=== PATIENT | male | born 1955 | race Caucasian/White ===

== ENCOUNTER 2022-06-15 15:12 | Outpatient (CLI) | payer MEDICARE, SELFPAY ==
--- NOTE | 2022-06-15 15:33 | ECG_ITS ---
Measurements Intervals [place] Rate: 75 P: [place]: 0 QRS: -2 QRSD: 129 T: 7 QT: 404 QTc: 452 Interpretive Statements ATRIAL FIBRILLATION RIGHT BUNDLE BRANCH BLOCK ABNORMAL ECG NO PREVIOUS ECG AVAILABLE FOR COMPARISON Electronically Signed On 06-15-2022 16:13:37 GENERAL MERCHANDISE SALESPERSON by Sathish England D.O.
[2022-06-15 16:02] LABS: Appearance Urine Clear (Clear); Bilirubin Urine Negative (Negative); Blood Urine Negative (Negative); Color Urine Yellow (Yellow); Glucose Urine UA Negative (Negative); Ketones Urine Negative (Negative); Leukocyte Esterase Ur Negative LEU/UL (NEGATIVE); Nitrate Urine Negative (Negative); Protein Urine Negative (Negative); Specific Grav Ur 1.015 (1.001-1.035); Urobilinogen Urine 0.2 mg/dL (<2.0)
[2022-06-15 16:06] LABS: Add Urine Microscopic? NO
[2022-06-15 16:09] LABS: Alanine Aminotransferase 41 U/L (6-50); Albumin Level 4.4 g/dL (3.5-5.1); Alkaline Phosphatase 65 U/L (38-126); Anion Gap 6 mmol/L (8-16); Aspartate Amino Transferase 36 U/L (17-59); Bilirubin,Total 0.9 mg/dL (0.2-1.3); Blood Urea Nitrogen 18 mg/dL (9-20); Calcium 8.7 mg/dL (8.4-10.2); Carbon Dioxide 28 mmol/L (22-30); Chloride 102 mmol/L (98-107); Cholesterol 162 mg/dL (0-200); Estimated Glomerular Filt Rate > 60; Glucose 96 mg/dL (65-110); HDL Direct 45 mg/dL; Potassium 4.5 mmol/L (3.4-5.0); Sodium 136 mmol/L (137-145); Triglycerides 60 mg/dL (<150)
[2022-06-15 16:30] LABS: LDL Cholesterol Direct 80 mg/dL
[2022-06-15 16:50] LABS: Prostate Specific Antigen 1.4 ng/mL (< OR = 4.0)
[2022-06-15 17:25] LABS: Folic Acid 14.1 ng/mL (2.76->20)
== END 2022-06-15 15:13 | disposition home or self-care (01) ==
LOC: ANHLAB 15:16
PROVIDERS: PCP Nurse Practitioner Family; Visit Provider Nurse Practitioner Family
DX: R35.1 Nocturia (principal); I10 Essential (primary) hypertension; I49.9 Cardiac arrhythmia, unspecified; I45.10 Unspecified right bundle-branch block
CPT/HCPCS: 36415; 80048; 80061; 80076; 81003; 82607; 82746; 84153; 84443; 93005

== ENCOUNTER 2022-08-22 01:13 | Day surgery (SDC) | payer MEDICARE, SELFPAY ==
[2022-08-19 13:30] VITALS: BMI 32.5
[2022-08-22] VITALS (9 sets, daily range): BP systolic 132–177; BP diastolic 80–127; PULSE 56–88; RESP 14–18; TEMP 36.6; O2SAT 95–99; BMI 32.7
--- NOTE | 2022-08-22 08:00 | ECG_ITS ---
Measurements Intervals [place] Rate: 69 P: [place]: 0 QRS: -3 QRSD: 150 T: -5 QT: 436 QTc: 467 Interpretive Statements ATRIAL FIBRILLATION RIGHT BUNDLE BRANCH BLOCK ABNORMAL ECG COMPARED TO ECG 06/15/2022 16:07:55 NO SIGNIFICANT CHANGES Electronically Signed On 08-22-2022 16:16:31 COAL WASHER by Russ Howell M.D.
--- NOTE | 2022-08-22 09:00 | ECG_ITS ---
Measurements Intervals [place] Rate: 57 P: 61 [place]: 272 QRS: -5 QRSD: 133 T: 1 QT: 462 QTc: 451 Interpretive Statements SINUS BRADYCARDIA WITH FIRST DEGREE AV BLOCK RIGHT BUNDLE BRANCH BLOCK ABNORMAL ECG COMPARED TO ECG 08/22/2022 08:55:01 SINUS BRADYCARDIA HAS REPLACED ATRIAL FIBRILLATION Electronically Signed On 08-22-2022 16:20:40 MANAGER INTERFACE by Russ Howell M.D.
[2022-08-22 09:30] LABS: Anion Gap 7 mmol/L (8-16); Blood Urea Nitrogen 18 mg/dL (9-20); Calcium 8.7 mg/dL (8.4-10.2); Carbon Dioxide 30 mmol/L (22-30); Chloride 102 mmol/L (98-107); Estimated CRCL calculation 75 ml/min; Estimated Glomerular Filt Rate > 60; Glucose 110 mg/dL (65-110); Potassium 4.4 mmol/L (3.4-5.0); Sodium 139 mmol/L (137-145)
--- NOTE | 2022-08-22 10:54 | WPDMODSED ---
Moderate Sedation Note-Pt Data Patient Data Diagnosis: Atrial fibrillation/persistent of unknown duration Present Complaint: No complaints Procedure to be performed/Plan: DC cardioversion Allergies Allergy/AdvReac Type Severity Reaction Status Date / Time Sulfa (Sulfonamide Allergy Rash Verified 08/22/22 09:03 Antibiotics) meperidine [From Demerol] AdvReac Unknown Hallucinati Verified 08/22/22 09:03 ng Home Medications Medication Instructions Recorded Confirmed Type ascorbic acid (vitamin C) 500 mg 500 mg PO DAILY 06/15/22 08/19/22 History tablet cholecalciferol (vitamin D3) 25 25 mcg PO DAILY 06/15/22 08/19/22 History mcg (1,000 unit) capsule docusate sodium 100 mg capsule 100 mg PO BID 06/15/22 08/22/22 History magnesium oxide 500 mg capsule 500 mg PO DAILY 06/15/22 08/19/22 History zinc sulfate 50 mg zinc (220 mg) 50 mg PO DAILY 06/15/22 08/19/22 History capsule (Orazinc) apixaban 5 mg tablet (Eliquis) 5 mg PO BID afib #60 tabs 06/16/22 08/22/22 Rx Probiotic 1 tablet PO DAILY 08/19/22 08/19/22 History milk thistle 500 mg capsule 1,000 mg PO DAILY 08/19/22 08/19/22 History sotalol 80 mg tablet 80 mg PO BID 08/19/22 08/22/22 History vitamin B complex (B 1 tablet PO DAILY 08/19/22 08/19/22 History Complex-Vitamin B12 tablet) Current Medications: Active Medications Sodium Chloride (Normal Saline Iv) 1,000 mls @ 30 mls/hr IV CONT .Q24H LAWANDA Sedation/Anesthesia: No previous sedation/anesthesia problems (including family history). [facility] Past Medical History Medical History (Updated 06/16/22 @ 12:43 by Nola Marvin NP) Atrial fibrillation BMI 32.0-32.9,adult Colon cancer screening Encounter to establish care HTN (hypertension) Hx of colonic polyp Hypersomnia Irregular heart rate Nocturia Snoring Surgical History Surgical History (Updated 06/15/22 @ 11:12 by SMITHA Tolbert) History of kidney surgery Family History Family History (Updated 06/15/22 @ 11:17 by SMITHA Tolbert) Sibling Alcohol abuse Mother Asthma Hypertension Grandparent Cancer Cerebrovascular accident Social History Social History (Updated 06/15/22 @ 14:32 by SMITHA Tolbert) Smoking packs per day: 1 Smoking cigarettes per day: 20.0 Years smoked: 10 Smoking pack-years: 10.00 Smoking status: Former smoker Tobacco type: cigarettes Smokeless tobacco user: chewing tobacco Additional smoking assessment comments: quit in 84 Alcohol intake: current Alcohol use details: Two per month Substance use: never Substance use type: does not use Lack of Transportation: No Lack of Food: Never True Current Housing: I Have Housing Concerned About Future Housing: No Difficulty Paying Gas/Electric Bills: No Difficulty Paying for Meds: No Currently Unemployed: No Education: High School Diploma/GED Difficulty w/ Childcare or Family Care: No Living arrangements: alone Spiritual care concerns: No Mod Sed Physical Exam Physical Exam Pre Procedural Exam: Normal: Neck, Throat, Airway, Lungs, Heart Size, Heart Rate, Neuro Exam and Extremities and Variation: Appearance (Overweight white male no distress) and Heart Rhythm (Irregularly irregular) Hours since solid foods: 12 Hours since liquid intake: 12 Mallampati Classification: class II Internal Medicine - PN: Obj Da Vital Signs Vital Signs: Vital Signs - 24 hr 08/22/22 09:00 08/22/22 10:50 Temperature 36.6 C Pulse Rate 80 88 Respiratory Rate 18 16 Blood Pressure 172/104 H 167/112 H Pulse Oximetry 98 99 Oxygen Delivery Room Air Room Air Meds/Results Medications: Active Medications Generic Name Dose Route Start Last Admin Trade Name Freq PRN Reason Stop Dose Admin Sodium Chloride 1,000 mls @ 30 mls/hr 08/22/22 08:00 Normal Saline Iv IV CONT .Q24H LAWANDA Labs 08/22/22 08:59 Labs: Laboratory Results - last 24 hr 08/22/22 08:59 Sodium 13
--- NOTE | 2022-08-22 11:01 | P.PCNCC_ITS ---
Cardiac Cath Procedure Note Date of procedure:: 08/22/22 Performing physician:: Marvel Jeong MD Indication:: Atrial fibrillation Brief clinical history:: This is a 66-year-old patient with atrial fibrillation unknown chronicity. An attempt at restoring sinus rhythm has been recommended for today. He is anticoagulated with apixaban and receiving antiarrhythmic therapy with sotalol. Procedure Procedure performed:: DC cardioversion Sedation/Medication given:: Propofol 50 mg IV push Estimated blood loss:: No blood loss Procedure note:: Patient was brought to the cardiac catheterization lab holding area where he was in the postabsorptive state defibrillator patches were placed in the AP position. He was then sedated with with propofol 50 mg IV push which provided very good sedation. He was then counter shocked using 200 joules in synchronized fashion x1 shock restoring normal sinus rhythm. Findings:: As above Conclusion:: Successful uncomplicated DC cardioversion terminating atrial fib/restoring sinus rhythm using 200 joules x1 shock. Marvel Jeong MD [facility]
== END 2022-08-22 12:30 | disposition home or self-care (01) ==
PROVIDERS: PCP Nurse Practitioner Family; Visit Provider Specialist
PROC: 5A2204Z Restoration of Cardiac Rhythm, Single (ICD-10-PCS; principal; 2022-08-22 10:00)
DX: I48.91 Unspecified atrial fibrillation (principal); I10 Essential (primary) hypertension; Z79.01 Long term (current) use of anticoagulants; Z87.891 Personal history of nicotine dependence
CPT/HCPCS: 36415; 80048; 83735; 92960; J2704; J7030

== ENCOUNTER 2022-08-25 10:44 | Observation (INO) | payer MEDICARE, SELFPAY ==
[2022-08-25] VITALS (20 sets, daily range): BP systolic 112–149; BP diastolic 74–116; PULSE 74–135; RESP 18–26; TEMP 36.5–37.7; O2SAT 92–95; BMI 31.9
--- NOTE | ~2022-08-25 | XR_ITS ---
Portable chest x-ray Comparison: None Clinical History: Cough, fever Findings: Lungs are clear, without focal consolidation or pleural effusion. Cardiomediastinal silho uette is unremarkable. Bones and soft tissues are unremarkable. Impression: Clear lungs. Reviewed, dictated and finalized at location . ROL ANALYST Impression: Clear lungs.
--- NOTE | ~2022-08-25 | CT_ITS ---
EXAMINATION:CT diagnostic chest wo con DATE: 08/25/2022 14:06 INDICATION: Chest pain. Fever. TECHNIQUE: Computed tomography (CT) of the chest was performed without intravenous contrast. Automate d exposure control and iterative reconstruction technique were employed. The dose-length product (DLP ) was 623.80 mGy-cm. COMPARISON: None. FINDINGS: There are two 3 mm nodules in right upper lobe, likely benign. There are patchy airspace an d groundglass opacities in basilar right lower lobe, consistent with pneumonia. There is mild atelect asis in lingula. No pleural effusion. There is left atrial enlargement of the heart. There are de la torre ry artery calcifications. No pericardial effusion. There is mild bilateral gynecomastia. There is mil d left hydronephrosis. There is cortical thinning of left kidney. There is moderate lower thoracic sp ondylosis. There is a hemangioma in T3 vertebral body. There is a 10 mm sclerotic lesion in T8 verteb ral body. There are old healed left rib fractures. IMPRESSION: 1. Right lower lobe pneumonia. 2. Mild left hydronephrosis. Consider CT urogram (CT abdomen and pelvis without and with contrast). 3. Sclerotic lesion in T3 vertebral body. The absence of known malignancy, this finding is likely a h emangioma or benign bone island. Reviewed, dictated and finalized at location A. [facility] IMPRESSION: 1. Right lower lobe pneumonia. 2. Mild left hydronephrosis. Consider CT urogram (CT abdomen and pelvis without and with contrast). 3. Sclerotic lesion in T3 vertebral body. The absence of known malignancy, this finding is likely a hemangioma or benign bone island.
--- NOTE | 2022-08-25 11:25 | ECG_ITS ---
Measurements Intervals [place] Rate: 84 P: [place]: 0 QRS: 17 QRSD: 133 T: 26 QT: 389 QTc: 461 Interpretive Statements ATRIAL FLUTTER/TACHYCARDIA RIGHT BUNDLE BRANCH BLOCK [120+ ms QRS DURATION, UPRIGHT V1, 40+ ms S IN I/aVL/V4/V5/V6] COMPARED TO ECG 08/22/2022 11:06:09 ATRIAL FLUTTER NOW PRESENT Electronically Signed On 08-25-2022 15:46:08 BRAID MAKER by Valerie Cagle M.D.
--- NOTE | 2022-08-25 12:20 | ED.GENADULT ---
HPI - General Adult General Chief complaint: Upper Respiratory Infection Stated complaint: COUGH, WARM TO TOUCH, TREMORS Time Seen by Provider: 08/25/22 12:04 Source: RN notes reviewed History of Present Illness HPI narrative: Patient presents emergency room from home for respiratory infection symptoms. Patient states symptoms began approximately 3 AM this morning. States he has had a cough has been productive of mucus as well as rhinorrhea. States that he also had a temperature up to 101.5 states he last took a gram of Tylenol at 10 AM this morning. He states that he did just recently have a cardioversion by Dr. Jeong approximately 4 days ago that was initially successful but he states over the past 2 days he is felt like he is gone back into A-fib states that he is on sotalol and Eliquis which she has been taking. He denies having any chest pain or shortness of breath he denies any abdominal pain nausea or vomiting Related Data Home Medications Medication Instructions Recorded Confirmed ascorbic acid (vitamin C) 500 mg 500 mg PO DAILY 06/15/22 08/19/22 tablet cholecalciferol (vitamin D3) 25 25 mcg PO DAILY 06/15/22 08/19/22 mcg (1,000 unit) capsule docusate sodium 100 mg capsule 100 mg PO BID 06/15/22 08/22/22 magnesium oxide 500 mg capsule 500 mg PO DAILY 06/15/22 08/19/22 zinc sulfate 50 mg zinc (220 mg) 50 mg PO DAILY 06/15/22 08/19/22 capsule (Orazinc) Probiotic 1 tablet PO DAILY 08/19/22 08/19/22 milk thistle 500 mg capsule 1,000 mg PO DAILY 08/19/22 08/19/22 sotalol 80 mg tablet 80 mg PO BID 08/19/22 08/22/22 vitamin B complex (B 1 tablet PO DAILY 08/19/22 08/19/22 Complex-Vitamin B12 tablet) Allergies Allergy/AdvReac Type Severity Reaction Status Date / Time Sulfa (Sulfonamide Allergy Rash Verified 08/25/22 13:22 Antibiotics) meperidine [From Demerol] AdvReac Unknown Hallucinati Verified 08/25/22 13:22 ng Review of Systems Review of Systems: Gen.: Reports fever Eyes: Denies eye pain or visual change ENT: Reports rhinorrhea Respiratory: Reports cough denies shortness of breath CV: Denies chest pain reports atrial fibrillation GI: Denies abdominal pain nausea, emesis or diarrhea Musculoskeletal: Denies back pain or muscle pain Neuro: Denies numbness, tingling, weakness or focal weakness Skin: Denies rash Except as documented, all other systems reviewed and negative [facility] Past Medical History Medical History Atrial fibrillation BMI 32.0-32.9,adult Colon cancer screening Encounter to establish care HTN (hypertension) Hx of colonic polyp Hypersomnia Irregular heart rate Nocturia Snoring Surgical History Surgical History (Updated 06/15/22 @ 11:12 by SMITHA Tolbert) History of kidney surgery Family History Family History (Updated 06/15/22 @ 11:17 by SMITHA Tolbert) Sibling Alcohol abuse Mother Asthma Hypertension Grandparent Cancer Cerebrovascular accident Social History Social History Smoking packs per day: 1 Smoking cigarettes per day: 20.0 Years smoked: 10 Smoking pack-years: 10.00 Smoking status: Former smoker Tobacco type: cigarettes Smokeless tobacco user: chewing tobacco Additional smoking assessment comments: quit in 84 Alcohol intake: current Alcohol use details: once a month Substance use: former Substance use type: marijuana Lack of Transportation: No Lack of Food: Never True Current Housing: I Have Housing Concerned About Future Housing: No Difficulty Paying Gas/Electric Bills: No Difficulty Paying for Meds: No Currently Unemployed: No Education: High School Diploma/GED Difficulty w/ Childcare or Family Care: No Living arrangements: alone Spiritual care concerns: No Exam Narrative: APPEARANCE: No acute distress, nontoxic, resting in bed EYES: EOMI HEENT: Normocepha
[2022-08-25 12:26] LABS: Influenza A QL RT-PCR Negative (Negative); Influenza B QL RT-PCR Negative (Negative); SARS-CoV-2 RNA PCR Negative
[2022-08-25] MEDS: SODIUM CHLORIDE 0.9% IV 1,000 ML 999 ML IV CONT (12:30)
[2022-08-25 13:04] LABS: Basophils Absolute Auto 0.1 K/mm3 (0.0-0.1); Basophils Percent Auto 0.3 % (0.2-1.2); Eosinophils Percent Auto 0.2 % (0-4.4); Hematocrit 43.9 % (42.0-52.0); Hemoglobin 14.8 g/dL (14.0-18.0); Immature Granulocyte Absolute 0.07 K/mm3 (0.00-0.031); Immature Granulocyte Percent A 0.4 % (0-0.5); Lymphocytes Percent Auto 7.4 % (18.3-44.2); Mean Corpuscular HGB Conc 33.7 g/dl (32-36); Mean Corpuscular Volume 94.8 fl (80-100); Mean Platelet Volume 9.8 fl (7.4-10.4); Monocytes Absolute Auto 1.5 K/mm3 (0.1-0.6); Monocytes Percent Auto 8.5 % (2.6-8.5); Neutrophils Absolute Auto 14.7 K/mm3 (1.3-6.7); Neutrophils Percent Auto 83.2 % (45.5-73.1); Platelet Count Result 213 k/mm3 (150-375); Red Blood Count 4.63 M/mm3 (4.6-6.20); Red Cell Distribution Width 13.1 % (11.5-14.5); White Blood Count 17.7 K/mm3 (4.5-10.0)
[2022-08-25 13:14] LABS: Alanine Aminotransferase 32 U/L (6-50); Albumin Level 4.2 g/dL (3.5-5.1); Alkaline Phosphatase 65 U/L (38-126); Anion Gap 6 mmol/L (8-16); Aspartate Amino Transferase 29 U/L (17-59); Bilirubin,Total 0.9 mg/dL (0.2-1.3); Blood Urea Nitrogen 16 mg/dL (9-20); Calcium 8.2 mg/dL (8.4-10.2); Carbon Dioxide 27 mmol/L (22-30); Chloride 100 mmol/L (98-107); Estimated CRCL calculation 74 ml/min; Estimated Glomerular Filt Rate > 60; Glucose 113 mg/dL (65-110); Lactic Acid Reflex 0.8 mmol/L (0.7-2.0); Potassium 4.2 mmol/L (3.4-5.0); Sodium 133 mmol/L (137-145)
[2022-08-25 13:17] LABS: INR 1.2; Prothrombin Time 15.1 Seconds (11.1-14.7)
[2022-08-25 13:18] LABS: Partial Thromboplastin Time 31.7 SECONDS (22.3-36.8)
[2022-08-25 13:25] LABS: NT Pro B Type Natriuretic Pept 1390 pg/mL (19.9-100); Troponin I < 0.012 ng/mL (0.000-0.034)
--- NOTE | 2022-08-25 18:38 | PC.NURSE ---
This patient, David Stewart III, was admitted to Medical Room 345-01. Patient/family oriented to hospital policies and general routines including ID bracelet, bed and alarms, visiting hours, pain management, procedures, bathroom and other care routines, personal items, smoking policy, room service/diet, and visiting hours. Information on how to activate the Rapid Response Team has been discussed. Patient/Family are encouraged to report perceived risks to care and to ask questions if they do not understand what they are told or what they should do.
--- NOTE | 2022-08-25 20:45 | PM.IMHP ---
H&P: HPI History of Present Illness Date/Time: 08/25/22 20:45 Chief Complaint: Chills Narrative: This is a 66-year-old male with past medical history significant for atrial fibrillation, rate control and anticoagulated, patient presented to the emergency room due to 3 days of flu-like symptoms, body aches and pains, nasal congestion, cough, fevers, chills, poor appetite, generalized malaise. In emergency room patient is preliminary workup was significant for CBC with a white count of 17,000, patient tested negative for influenza type A influenza type B and COVID-19. A CT of the chest was reported as: FINDINGS: There are two 3 mm nodules in right upper lobe, likely benign. There are patchy airspace and groundglass opacities in basilar right lower lobe, consistent with pneumonia. There is mild atelectasis in lingula. No pleural effusion. There is left atrial enlargement of the heart. There are coronary artery calcifications. No pericardial effusion. There is mild bilateral gynecomastia. There is mild left hydronephrosis. There is cortical thinning of left kidney. There is moderate lower thoracic spondylosis. There is a hemangioma in T3 vertebral body. There is a 10 mm sclerotic lesion in T8 vertebral body. There are old healed left rib fractures. IMPRESSION: 1. Right lower lobe pneumonia. 2. Mild left hydronephrosis. Consider CT urogram (CT abdomen and pelvis without and with contrast). 3. Sclerotic lesion in T3 vertebral body. The absence of known malignancy, this finding is likely a hemangioma or benign bone island. Review of Systems Review of Systems: Flu-like symptoms, chills, cough, body aches and pains, generalized malaise, poor appetite Constitutional: Constitutional: Reports body ache(s), Reports chills, Reports fatigue, Reports fever(s), Reports lethargy, Reports malaise, Reports night sweats, Reports poor appetite and Reports weakness Eyes: Eyes: Denies change in vision ENT: Denies dysphagia, Denies vertigo, Denies dizziness and Denies odynophagia Cardiovascular: Cardiovascular: Denies chest pain, Denies leg edema, Denies lightheadedness and Denies palpitations Respiratory: Respiratory: Reports chest congestion, Reports cough, Reports excessive phlegm production, Denies pain on inspiration and Reports dyspnea Gastrointestinal: Gastrointestinal: Denies abdominal pain, Denies dyspepsia, Denies heartburn, Denies diarrhea, Denies nausea and Denies vomiting Genitourinary: Genitourinary: Denies dysuria Musculoskeletal: Musculoskeletal: Reports muscle weakness Integumentary/Breasts: Skin/Breast: Denies rash Neurologic: Denies focal weakness and Denies Sensory deficit (Neuro) Psychiatric: Psychiatric: Reports no additional psychiatric complaints and Reports as per HPI Endocrine: Endocrine: Denies cold intolerance, Denies flushing, Denies heat intolerance, Denies polyphagia, Denies polydipsia and Denies palpitations Hematologic/Lymphatic: Hematologic/Lymphatic: Reports no additional hematologic/lymphatic complaints and Reports as per HPI Allergic/Immunologic: Allergic/Immunologic: Reports no additional allergic/immunologic complaints and Reports as per HPI PMFSH Past Medical History Medical History Atrial fibrillation BMI 32.0-32.9,adult Colon cancer screening Encounter to establish care HTN (hypertension) Hx of colonic polyp Hypersomnia Irregular heart rate Nocturia Snoring Surgical History Surgical History (Updated 06/15/22 @ 11:12 by SMITHA Tolbert) History of kidney surgery Family History Family History (Updated 06/15/22 @ 11:17 by SMITHA Tolbert) Sibling Alcohol abuse Mother Asthma Hypertension Grandparent Cancer Cerebrovascular accident Social History Social History Smoking packs per day: 1 Smoking cigarettes per day: 20.0 Years smoked: 10 Smoking pack-years: 10.0
[2022-08-25] MEDS: APIXABAN 5 MG TABLET PO (21:44)
[2022-08-25] MEDS: SOTALOL HCL 80 MG TABLET PO (21:44)
[2022-08-26] VITALS (11 sets, daily range): BP systolic 113–137; BP diastolic 62–85; PULSE 66–104; RESP 18–20; TEMP 35.6–36.6; O2SAT 96–97
[2022-08-26 05:38] LABS: Basophils Absolute Auto 0.1 K/mm3 (0.0-0.1); Basophils Percent Auto 0.4 % (0.2-1.2); Eosinophils Absolute Auto 0.1 K/mm3 (0-0.3); Hematocrit 39.4 % (42.0-52.0); Hemoglobin 13.4 g/dL (14.0-18.0); Immature Granulocyte Absolute 0.04 K/mm3 (0.00-0.031); Immature Granulocyte Percent A 0.3 % (0-0.5); Lymphocytes Absolute Auto 2.59 K/mm3 (0.9-3.2); Lymphocytes Percent Auto 19.5 % (18.3-44.2); Mean Corpuscular Hemoglobin 31.9 pg (26-34); Mean Corpuscular Volume 93.8 fl (80-100); Mean Platelet Volume 10.3 fl (7.4-10.4); Monocytes Absolute Auto 1.3 K/mm3 (0.1-0.6); Neutrophils Absolute Auto 9.1 K/mm3 (1.3-6.7); Neutrophils Percent Auto 68.8 % (45.5-73.1); Platelet Count Result 204 k/mm3 (150-375); White Blood Count 13.3 K/mm3 (4.5-10.0)
[2022-08-26 05:43] LABS: Alanine Aminotransferase 27 U/L (6-50); Albumin Level 3.8 g/dL (3.5-5.1); Alkaline Phosphatase 55 U/L (38-126); Anion Gap 5 mmol/L (8-16); Aspartate Amino Transferase 27 U/L (17-59); Bilirubin,Total 1.1 mg/dL (0.2-1.3); Blood Urea Nitrogen 16 mg/dL (9-20); Calcium 7.8 mg/dL (8.4-10.2); Carbon Dioxide 28 mmol/L (22-30); Chloride 103 mmol/L (98-107); Estimated CRCL calculation 74 ml/min; Estimated Glomerular Filt Rate > 60; Glucose 114 mg/dL (65-110); Sodium 136 mmol/L (137-145)
[2022-08-26] MEDS: SOTALOL HCL 80 MG TABLET PO ×2 (08:29→17:32)
[2022-08-26] MEDS: APIXABAN 5 MG TABLET PO ×2 (08:29→17:32)
[2022-08-26] MEDS: VITAMIN B COMPLEX CAPSULE 1 CAP PO (08:30)
[2022-08-26] MEDS: ZINC SULFATE 220 MG CAPSULE 50 MG PO (08:30)
[2022-08-26] MEDS: DOCUSATE SODIUM 100 MG CAPSULE PO ×2 (08:33→17:31)
--- NOTE | 2022-08-26 10:06 | PM.CNCAR ---
Assessment and Plan Assessment and plan (1) Atrial flutter: Code(s): I48.92 - Unspecified atrial flutter Status: Acute Plan This is a 66-year-old man with history of atrial flutter he was seen in the outpatient setting and cardioverted to sinus rhythm 4 days ago. In the setting of this febrile illness he is back in atrial flutter and again is tolerating his arrhythmia without any significant decompensation. Options of excepting chronic atrial flutter versus attempting rhythm again have been discussed with him. My preference would be to consider consulting echo technician at this time since his recurrence occurred within just several days of cardioversion. I seems highly unlikely that repeated cardioversion will be successful in restoring and maintaining sinus rhythm. Patient would like to consider this option as he recovers from his pneumonia. I will see him in the office as an outpatient after discharge and discuss this further. Marvel Jeong MD [facility] History of Present Illness History of Present Illness Consult date/time: 08/26/22 10:06 Reason For Visit: sepsis,community acquired pneumonia,atrial fibrill Narrative: This is a 66-year-old man who has a history of atrial flutter I am seeing him today at the request of the hospitalist because of recurrence of his arrhythmia. The patient was referred to see me by his PCP as an outpatient because of the development of atrial fibrillation. When he was seen in the office his electrocardiogram demonstrated atrial flutter with controlled ventricular response. He was not greatly symptomatic with this at most was complaining of symptoms of fatigue and exertional intolerance. He was specifically where his arrhythmia. An echocardiogram was done as an outpatient demonstrating preserved left ventricular systolic function, no significant valvular pathology any did have sick significant at least moderate biatrial dilation. As result of this an attempt was made to restore sinus rhythm electrically. He was started on sotalol and brought in to the hospital for DC cardioversion 4 days ago. He was sedated with propofol and got counter shocked with 200 joules restoring sinus rhythm. He then came back to the emergency room yesterday primarily because of a cough and a fever. For a couple of days he has been having symptoms of a initially nonproductive and then a productive cough with a temperature of up to 101.5? at home. He was seen in the emergency room and found to have pneumonia and admitted to the hospital for he was started on antibiotics. It appears that he has defervesce 10 feels well at this time this morning. It is not clear to me a according to those in the chart if he is planning to be discharged today or not. His dosage of sotalol was increased to 120 mg q.12 hours he is currently maintaining atrial flutter with a heart rate of about 67 and is otherwise free of any complaints. He remains systemically anticoagulated with apixaban. Review of Systems Constitutional: Constitutional: Reports no additional constitutional complaints Eyes: Eyes: Reports no additional eye complaints ENT: Reports system reviewed and no additional complaints, except as documented Cardiovascular: Cardiovascular: Reports no additional cardiovascular complaints Respiratory: Respiratory: Reports as per HPI and Reports cough Gastrointestinal: Gastrointestinal: Reports no additional gastrointestinal complaints Musculoskeletal: Musculoskeletal: Reports no additional musculoskeletal complaints Integumentary/Breasts: Skin/Breast: Reports system reviewed and no additional complaints, except as docu Neurologic: Reports system reviewed and no additional complaints, except as documented Endocrine: Endocrine: Reports no additional endocrine complaints Hematologic/Lymphatic: Hematologic/Lymphatic: Reports no additional hematologic/lymphatic complaints Allergic/Immunologic: Allergic/Immunologic: Report
--- NOTE | 2022-08-26 12:01 | PM.IMPN ---
Progress Note: A&P Assessment and Plan (1) Community acquired pneumonia: Code(s): J18.9 - Pneumonia, unspecified organism Status: Acute Assessment and Plan: Admit to regular medical floor Started on Rocephin and Zithromax Cultures in progress Supportive care (2) Atrial fibrillation: Code(s): I48.91 - Unspecified atrial fibrillation Status: Acute Assessment and Plan: Continue apixaban Continue sotalol (3) HTN (hypertension): Code(s): I10 - Essential (primary) hypertension Status: Acute Assessment and Plan: Well controlled Subjective Date/time seen: 08/26/22 12:01 No new complaints Exam Narrative: Patient is laying in bed Const: General: comfortable, no acute distress, well developed, alert, awake, ill appearing acutely, average body habitus and overweight Nutritional Appearance: average body habitus and overweight Orientation/consciousness: patient oriented x3 HENMT: Head: normal to inspection, normocephalic and atraumatic Ears: hearing grossly normal bilaterally Face/Nose/Sinus: normal facial exam Face and sinus: normal facial exam Eyes: General: appearance normal, both eyes and all related structures Pupils: Equal, round and reactive pupils present EOM: EOMs intact bilaterally Neck: Neck: full ROM, no lymphadenopathy and no JVD Thyroid: thyroid normal Lymphatic: no lymphadenopathy noted Resp: Effort & Inspection: normal respiratory effort and able to speak in complete sentences Auscultation: clear to auscultation bilaterally Cardio: Jugular venous distension: no JVD Rate: regular rate Rhythm: regular rhythm Heart sounds: S1 normal heart sound present and S2 normal heart sound present GI: Inspection: Pannus present and obesity : General: Yes deferred Skin: Rashes: no rashes Wounds: no wounds Neuro: General: patient oriented x3 and CN's II-XI intact bilaterally Cranial nerves: Yes CN's II-XII intact bilaterally and Yes Equal, round and reactive pupils present Cognition (Neuro): normal cognition Speech: normal speech Gait exam (Neuro): Normal gait present Motor exam (neuro): 5/5 motor strength present throughout Sensory Exam: No Sensory deficit (Neuro) Extrem: General: normal to inspection, full ROM, no joint enlargement and no pedal edema Objective Data Vital Signs Vital Signs: Vital Signs - 24 hr 08/25/22 12:16 08/25/22 12:31 08/25/22 13:00 Temperature Pulse Rate 114 H 105 H 112 H Respiratory Rate 23 H 26 H 21 H Blood Pressure 130/90 112/74 149/88 H Pulse Oximetry 94 94 93 Oxygen Delivery 08/25/22 13:31 08/25/22 13:45 08/25/22 15:00 Temperature 97.8 F Pulse Rate 105 H 74 Respiratory Rate 21 H 21 H Blood Pressure 140/99 H 126/90 Pulse Oximetry 94 94 Oxygen Delivery 08/25/22 15:30 08/25/22 16:01 08/25/22 16:45 Temperature Pulse Rate 91 95 80 Respiratory Rate 21 H 24 H 20 Blood Pressure 140/99 H 146/90 H 140/90 Pulse Oximetry 94 94 95 Oxygen Delivery 08/25/22 20:08 08/25/22 21:44 08/25/22 20:00 Temperature 97.7 F Pulse Rate 80 96 Respiratory Rate 18 Blood Pressure 136/78 Pulse Oximetry 94 Oxygen Delivery Room Air 08/26/22 06:00 08/25/22 20:00 08/26/22 00:00 Temperature 97.9 F Pulse Rate 68 89 87 Respiratory Rate 18 Blood Pressure 137/75 Pulse Oximetry 97 Oxygen Delivery 08/26/22 04:00 08/26/22 08:29 08/26/22 08:00 Temperature Pulse Rate 67 84 74 Respiratory Rate Blood Pressure Pulse Oximetry Oxygen Delivery Intake/Output Intake/Output: Intake & Output 08/23/22 08/24/22 08/25/22 08/26/22 23:59 23:59 23:59 23:59 Intake Total 1540 640 Balance 1540 640 Meds/Results Medications: Active Medications Generic Name Dose Route Start Last Admin Trade Name Freq PRN Reason Stop Dose Admin Apixaban 5 mg 08/25/22 21:00 08/26/22 08:29 Apixaban 5 Mg Tablet PO 5 mg BID LAWANDA Administration Ascorbic Acid 500
[2022-08-26] MEDS: CHOLECALCIFEROL 1,000 UNITS TABLET 1000 UNITS PO (20:07)
[2022-08-26] MEDS: MAGNESIUM OXIDE 400 MG TABLET PO (20:07)
[2022-08-26] MEDS: ASCORBIC ACID 500 MG TABLET PO (20:07)
[2022-08-27] VITALS: PULSE 88
[2022-08-27 04:00] VITALS: PULSE 65
[2022-08-27 04:47] VITALS: BP 128/73; PULSE 76; RESP 18; TEMP 36.6; O2SAT 97
[2022-08-27] MEDS: DOCUSATE SODIUM 100 MG CAPSULE PO (08:38)
[2022-08-27] MEDS: ZINC SULFATE 220 MG CAPSULE 50 MG PO (08:38)
[2022-08-27] MEDS: VITAMIN B COMPLEX CAPSULE 1 CAP PO (08:38)
[2022-08-27 08:39] VITALS: PULSE 68
[2022-08-27] MEDS: SOTALOL HCL 80 MG TABLET PO (08:39)
[2022-08-27] MEDS: LORATADINE 10 MG TABLET PO (08:40)
[2022-08-27] MEDS: APIXABAN 5 MG TABLET PO (08:40)
--- NOTE | 2022-08-27 12:25 | PM.DS ---
DS: Admitting Diagnosis Discharge Date 08/27/22 Admitting Diagnosis atrial flutter and pneumonia DS: Discharge Diagnosis Discharge Diagnosis (1) Community acquired pneumonia: Code(s): J18.9 - Pneumonia, unspecified organism Status: Acute Assessment and Plan: antibiotics (2) Atrial fibrillation: Code(s): I48.91 - Unspecified atrial fibrillation Status: Acute Assessment and Plan: Continue apixaban Continue sotalol (3) HTN (hypertension): Code(s): I10 - Essential (primary) hypertension Status: Acute Assessment and Plan: Well controlled DS: Summary Hospital Course Hospital Course: patient is a 66-year-old male coming into the hospital with pneumonia. He will be sent home on Omnicef for 5 more days. Otherwise he does have a history of atrial flutter which was treated with cardioversion however patient and couple days later went back into atrial flutter. Dr. Jeong was consulted and recommended evaluation as an outpatient for possible EP study. Follow-up cardiology. rates are otherwise controlled he is asymptomatic Time Spent with Patient Time attestation: Total time spent providing and/or coordinating discharge services: Exam Narrative: Patient is laying in bed Const: General: comfortable, no acute distress, well developed, alert, awake, ill appearing acutely, average body habitus and overweight Nutritional Appearance: average body habitus and overweight Orientation/consciousness: patient oriented x3 HENMT: Head: normal to inspection, normocephalic and atraumatic Ears: hearing grossly normal bilaterally Face/Nose/Sinus: normal facial exam Face and sinus: normal facial exam Eyes: General: appearance normal, both eyes and all related structures Pupils: Equal, round and reactive pupils present EOM: EOMs intact bilaterally Neck: Neck: full ROM, no lymphadenopathy and no JVD Thyroid: thyroid normal Lymphatic: no lymphadenopathy noted Resp: Effort & Inspection: normal respiratory effort and able to speak in complete sentences Auscultation: clear to auscultation bilaterally Cardio: Jugular venous distension: no JVD Rate: regular rate Rhythm: regular rhythm Heart sounds: S1 normal heart sound present and S2 normal heart sound present GI: Inspection: Pannus present and obesity : General: Yes deferred Skin: Rashes: no rashes Wounds: no wounds Neuro: General: patient oriented x3 and CN's II-XI intact bilaterally Cranial nerves: Yes CN's II-XII intact bilaterally and Yes Equal, round and reactive pupils present Cognition (Neuro): normal cognition Speech: normal speech Gait exam (Neuro): Normal gait present Motor exam (neuro): 5/5 motor strength present throughout Sensory Exam: No Sensory deficit (Neuro) Extrem: General: normal to inspection, full ROM, no joint enlargement and no pedal edema DS: Data Data Completed and Pending Labs on day of discharge: Preliminary micro results at discharge 08/25/22 14:42 Blood Culture - Preliminary Blood 08/25/22 14:43 Blood Culture - Preliminary Blood Discharge Plan Discharge Attending physician on discharge: Marvel Ramon Consulting providers: Marvel Jeong Discharging Clinician: Marvel Ramon Patient Disposition: Home, Self-Care Activity: as tolerated Diet: as tolerated Patient Instructions: Antibiotic Form Stand Alone Forms: General Discharge Information Follow-up/Referrals: Marvel Jeong MD [Physician] - Nola Marvin NP [Primary Care Provider] - Discharge Medications: New cefdinir 300 mg capsule 300 mg PO Q12H Qty: 10 0RF Continued ascorbic acid (vitamin C) 500 mg tablet 500 mg PO DAILY docusate sodium 100 mg capsule 100 mg PO BID cholecalciferol (vitamin D3) 25 mcg (1,000 unit) capsule 25 mcg PO DAILY magnesium oxide 500 mg capsule 400 mg PO DAILY zinc sulfate [Orazinc] 50 mg zinc (220 m
[2022-08-27 14:00] VITALS: BP 114/76; PULSE 70; RESP 20; TEMP 37; O2SAT 97
== END 2022-08-27 14:31 | disposition home or self-care (01) ==
LOC: ANHED 15:19 → ANH3MED 16:51
PROVIDERS: Physician Assistant; Admitting Provider Internal Medicine; Emergency Provider Emergency Medicine; PCP Nurse Practitioner Family; Visit Provider Chiropractor
DX: J18.9 Pneumonia, unspecified organism (principal); I48.91 Unspecified atrial fibrillation; I10 Essential (primary) hypertension; N13.30 Unspecified hydronephrosis; I48.92 Unspecified atrial flutter; I45.10 Unspecified right bundle-branch block; M47.814 Spondylosis without myelopathy or radiculopathy, thoracic region; F12.11 Cannabis abuse, in remission; F10.90 Alcohol use, unspecified, uncomplicated; D72.829 Elevated white blood cell count, unspecified; Z20.822 Contact with and (suspected) exposure to COVID-19; Z79.01 Long term (current) use of anticoagulants; Z87.891 Personal history of nicotine dependence; Z79.899 Other long term (current) drug therapy; Z82.49 Family history of ischemic heart disease and other diseases of the circulatory system
CPT/HCPCS: 36415; 71045; 71250; 80053; 83605; 83880; 84484; 85025; 85610; 85730; 87040; 87636; 93005; 96361; 96365; 96366; 96367; 99285; A9270; G0378; J0456; J0696; J7030

== ENCOUNTER 2022-08-31 08:27 | Outpatient (CLI) | payer MEDICARE, SELFPAY ==
--- NOTE | 2022-09-17 22:38 | WPDHOMESLEEP ---
Sleep Study - Home Unattended Date of Study: 08/31/22 Ordering Provider: Nola Marvin NP Interpreting Provider: Megan Arteaga, DO Home Sleep Study Type: Watch PAT Height: 1.75 m Weight: 99.79 kg Body Mass Index: 32.5 Neck Circumference (inches): 16.5 [place]: 7 Reason for Sleep Study Nocturia, daytime hypersomnia Sleep History The patient is a 66-year-old male with hypertension, atrial fibrillation, irritable bowel syndrome and history of tobacco use that had a sleep study ordered for evaluation of sleep apnea. The patient occasionally awakens from sleep short of breath. He denies awakening at night with heartburn, belching or cough. He constantly snores loudly enough that others complain. He constantly has trouble sleeping when he has a cold. He occasionally wakes up gasping for air throughout the night. He occasionally has breathing problems at night observed by himself or others. He denies sweating excessively at night. He denies having heart palpitations or irregular heartbeats during the night. He frequently falls asleep during the day but never while driving. He denies sleep paralysis and cataplexy. He frequently has trouble at school or work due to sleepiness. He frequently experiences vivid dreamlike scenes upon awakening or falling asleep. He rarely feels afraid of going to sleep. He rarely has nightmares. He frequently remembers his dreams. He frequently has thoughts racing through his mind. He occasionally feels sad, depressed and anxious. He occasionally has muscular tension. He frequently notices parts of his body jerk. He occasionally kicks during the night. He rarely experiences crawling and aching feelings in his legs. He occasionally has leg pain during the night. He constantly grinds his teeth during sleep and occasionally awakens with morning jaw pain. He is rarely bothered by pain during the day and occasionally awakened by pain during the night. He occasionally wakes up feeling stiff in the morning. He rarely wakes up with sore or achy muscles. He rarely wakes up with pain in the neck, spine or other joints. He goes to bed at 9:30 p.m. on weekdays and at 10:30 p.m. on weekends. He is usually able to fall asleep in under 5 minutes. He wakes up more than 4 times throughout the night. When he awakens, he will watch videos. He will stay asleep from 10:00 p.m. to 2:00 a.m. and remain awake until 4-5 a.m. and then fall back asleep until 7:00 a.m.. He typically gets 4-6 hours of sleep per night. He will stay in bed for 5 minutes after waking up in the morning. He currently lives alone. He does not consume any caffeinated beverages within 2 hours of bedtime. He does not engage in physical exercise before bedtime. He will watch television before falling asleep. He will take naps in the afternoon or the evening and they are refreshing. He drinks 3 cups of caffeinated beverage per day. He is a former smoker. He denies alcohol and recreational drug use. [facility] Past Medical History Medical History Atrial fibrillation BMI 32.0-32.9,adult Colon cancer screening Encounter to establish care Hemorrhoid HTN (hypertension) Hx of colonic polyp Hypersomnia Irregular heart rate Nocturia Snoring Surgical History Surgical History History of kidney surgery Family History Family History Sibling Alcohol abuse Mother Asthma Hypertension Grandparent Cancer Cerebrovascular accident Social History Social History Smoking packs per day: 1 Smoking cigarettes per day: 20.0 Years smoked: 10 Smoking pack-years: 10.00 Smoking status: Former smoker Tobacco type: cigarettes Smokeless tobacco user: chewing tobacco Additional smoking assessment comments: quit
[2022-09-17 22:40] VITALS: BMI 32.5
--- NOTE | 2023-01-10 10:49 | SLEEP ---
pt is having uppp then will f/u with a second test to retest ahi
== END 2022-09-01 10:24 | disposition home or self-care (01) ==
LOC: ANHCSM 08:29
PROVIDERS: PCP Nurse Practitioner Family; Visit Provider Nurse Practitioner Family
DX: G47.10 Hypersomnia, unspecified (principal); G47.33 Obstructive sleep apnea (adult) (pediatric)
CPT/HCPCS: 95800

== ENCOUNTER 2022-09-05 10:51 | Emergency (ER) | payer MEDICARE, SELFPAY ==
[2022-09-05 11:21] VITALS: BP 158/88; PULSE 68; RESP 16; TEMP 36.4; O2SAT 98
--- NOTE | 2022-09-05 15:13 | ED.GENADULT ---
HPI - General Adult General Chief complaint: Unspecified Stated complaint: rectal bleeding x2 days, on blood thinners Time Seen by Provider: 09/05/22 13:43 History of Present Illness HPI narrative: Patient this is a 66-year-old male who comes in with chief complaint of rectal bleed x3 days. States he first noticed this on Monday after he went to the bathroom felt he had bleeding in his underwear. There was bright red blood. States it seemed dilute. He states that he had 1 more episode at a later with blood in his underwear. Denies blood in the stools. Denies melena. Denies hematochezia, nausea, vomiting, fevers, chills. Bowel movements have been regular. He is concerned as he does take Eliquis regularly. Denies LOC or any lightheadedness or dizziness. Denies any pain. Related Data Home Medications Medication Instructions Recorded Confirmed ascorbic acid (vitamin C) 500 mg 500 mg PO DAILY 06/15/22 08/25/22 tablet cholecalciferol (vitamin D3) 25 25 mcg PO DAILY 06/15/22 08/25/22 mcg (1,000 unit) capsule docusate sodium 100 mg capsule 100 mg PO BID 06/15/22 08/25/22 magnesium oxide 500 mg capsule 400 mg PO DAILY 06/15/22 08/25/22 zinc sulfate 50 mg zinc (220 mg) 50 mg PO DAILY 06/15/22 08/25/22 capsule (Orazinc) milk thistle 500 mg capsule 1,000 mg PO DAILY 08/19/22 08/25/22 sotalol 80 mg tablet 80 mg PO BID 08/19/22 08/25/22 vitamin B complex (B 1 tablet PO DAILY 08/19/22 08/25/22 Complex-Vitamin B12 tablet) Allergies Allergy/AdvReac Type Severity Reaction Status Date / Time Sulfa (Sulfonamide Allergy Rash Verified 09/05/22 11:30 Antibiotics) meperidine [From Demerol] AdvReac Unknown Hallucinati Verified 09/05/22 11:30 ng Review of Systems Review of Systems: CONSTITUTIONAL: Denies fever, chills, or sweats. EYES: Denies visual changes, redness, or discharge. ENT: Denies rhinorrhea, congestion, sore throat, or otalgia. CARDIOVASCULAR: Denies chest pain, palpitations, or edema. RESPIRATORY: Denies cough or dyspnea. GASTROINTESTINAL: Endorses rectal bleed. Denies rectal pain. Denies abdominal pain, nausea, vomiting, or diarrhea. GENITOURINARY: Denies dysuria or hematuria. SKIN: Denies rash or itching. MUSCULOSKELETAL: Denies back pain, joint pain, or myalgia. NEUROLOGIC: Denies headache, numbness, dizziness, or weakness. PSYCHIATRIC: Denies anxiety or depression. [facility] Past Medical History Medical History (Updated 09/05/22 @ 15:54 by Ruiz Vallejo PA-C) Atrial fibrillation BMI 32.0-32.9,adult Colon cancer screening Encounter to establish care Hemorrhoid HTN (hypertension) Hx of colonic polyp Hypersomnia Irregular heart rate Nocturia Snoring Surgical History Surgical History (Updated 06/15/22 @ 11:12 by SMITHA Tolbert) History of kidney surgery Family History Family History (Updated 06/15/22 @ 11:17 by SMITHA Tolbert) Sibling Alcohol abuse Mother Asthma Hypertension Grandparent Cancer Cerebrovascular accident Social History Social History Smoking packs per day: 1 Smoking cigarettes per day: 20.0 Years smoked: 10 Smoking pack-years: 10.00 Smoking status: Former smoker Tobacco type: cigarettes Smokeless tobacco user: chewing tobacco Additional smoking assessment comments: quit in 84 Alcohol intake: current Alcohol use details: once a month Substance use: unknown Substance use type: does not use Lack of Transportation: No Lack of Food: Never True Current Housing: I Have Housing Concerned About Future Housing: No Difficulty Paying Gas/Electric Bills: No Difficulty Paying for Meds: No Currently Unemployed: No Education: High School Diploma/GED Difficulty w/ Childcare or Family Care: No Living arrangements: alone Spiritual care concerns: No Exam Narrative: GENERAL: Well-appearing, well-nourished, and in no acute distress. HEAD: Normocephali
[2022-09-05 15:37] LABS: Basophils Percent Auto 0.6 % (0.2-1.2); Eosinophils Absolute Auto 0.1 K/mm3 (0-0.3); Eosinophils Percent Auto 1.7 % (0-4.4); Hematocrit 44.1 % (42.0-52.0); Hemoglobin 14.9 g/dL (14.0-18.0); Immature Granulocyte Absolute 0.02 K/mm3 (0.00-0.031); Immature Granulocyte Percent A 0.3 % (0-0.5); Lymphocytes Absolute Auto 2.35 K/mm3 (0.9-3.2); Lymphocytes Percent Auto 36.4 % (18.3-44.2); Mean Corpuscular HGB Conc 33.8 g/dl (32-36); Mean Corpuscular Hemoglobin 31.7 pg (26-34); Mean Corpuscular Volume 93.8 fl (80-100); Mean Platelet Volume 9.7 fl (7.4-10.4); Monocytes Absolute Auto 0.5 K/mm3 (0.1-0.6); Monocytes Percent Auto 8.2 % (2.6-8.5); Neutrophils Absolute Auto 3.4 K/mm3 (1.3-6.7); Neutrophils Percent Auto 52.8 % (45.5-73.1); Platelet Count Result 249 k/mm3 (150-375); Red Cell Distribution Width 12.6 % (11.5-14.5); White Blood Count 6.5 K/mm3 (4.5-10.0)
[2022-09-05 15:45] LABS: Alanine Aminotransferase 43 U/L (6-50); Albumin Level 4.4 g/dL (3.5-5.1); Alkaline Phosphatase 64 U/L (38-126); Anion Gap 4 mmol/L (8-16); Aspartate Amino Transferase 32 U/L (17-59); Bilirubin,Total 0.7 mg/dL (0.2-1.3); Blood Urea Nitrogen 18 mg/dL (9-20); Calcium 8.8 mg/dL (8.4-10.2); Carbon Dioxide 31 mmol/L (22-30); Chloride 100 mmol/L (98-107); Estimated CRCL calculation 75 ml/min; Estimated Glomerular Filt Rate > 60; Glucose 97 mg/dL (65-110); Potassium 4.4 mmol/L (3.4-5.0); Sodium 135 mmol/L (137-145)
== END 2022-09-05 16:03 | disposition home or self-care (01) ==
PROVIDERS: Emergency Provider Physician Assistant; PCP Nurse Practitioner Family
DX: K62.5 Hemorrhage of anus and rectum (principal); I48.91 Unspecified atrial fibrillation; I10 Essential (primary) hypertension; Z86.010 Personal history of colon polyps; Z87.891 Personal history of nicotine dependence
CPT/HCPCS: 36415; 80053; 85025; 99283

== ENCOUNTER 2022-11-30 09:25 | Outpatient (CLI) | payer MEDICARE, SELFPAY ==
--- NOTE | ~2022-11-30 | CT_ITS ---
EXAMINATION: CT sinus wo con DATE: 11/30/2022 09:51 INDICATION: Chronic pansinusitis TECHNIQUE: Computed tomography (CT) of the paranasal sinuses was performed without intravenous contra st. The dose-length product was 329.94 mGy-cm. Automated exposure control and iterative reconstructio n technique were employed. COMPARISON: None FINDINGS: There is mucosal thickening of the maxillary, ethmoid, sphenoid sinuses the right ostiomeat al unit is partially occluded. The left ostiomeatal unit is occluded. No mucoperiosteal reaction. Mas toids are pneumatized. IMPRESSION: 1. Moderate sinusitis. Reviewed, dictated and finalized at location B. IMPRESSION: 1. Moderate sinusitis.
== END 2022-11-30 09:26 | disposition home or self-care (01) ==
PROVIDERS: PCP Nurse Practitioner Family; Visit Provider Otolaryngology
DX: J32.4 Chronic pansinusitis (principal)
CPT/HCPCS: 70486

== ENCOUNTER 2023-04-05 09:46 | Outpatient (CLI) | payer MEDICARE, SELFPAY ==
[2023-04-05 10:45] LABS: Basophils Absolute Auto 0.1 K/mm3 (0.0-0.1); Basophils Percent Auto 0.8 % (0.2-1.2); Eosinophils Absolute Auto 0.1 K/mm3 (0-0.3); Eosinophils Percent Auto 1.1 % (0-4.4); Hematocrit 41.7 % (42.0-52.0); Hemoglobin 13.8 g/dL (14.0-18.0); Immature Granulocyte Absolute 0.02 K/mm3 (0.00-0.031); Immature Granulocyte Percent A 0.3 % (0-0.5); Lymphocytes Absolute Auto 2.07 K/mm3 (0.9-3.2); Lymphocytes Percent Auto 33.4 % (18.3-44.2); Mean Corpuscular HGB Conc 33.1 g/dl (32-36); Mean Corpuscular Hemoglobin 32.1 pg (26-34); Mean Platelet Volume 9.9 fl (7.4-10.4); Monocytes Absolute Auto 0.6 K/mm3 (0.1-0.6); Monocytes Percent Auto 10.3 % (2.6-8.5); Neutrophils Absolute Auto 3.4 K/mm3 (1.3-6.7); Neutrophils Percent Auto 54.1 % (45.5-73.1); Platelet Count Result 232 k/mm3 (150-375); Red Cell Distribution Width 12.6 % (11.5-14.5); White Blood Count 6.2 K/mm3 (4.5-10.0)
[2023-04-05 11:04] LABS: Anion Gap 3 mmol/L (8-16); Blood Urea Nitrogen 20 mg/dL (9-20); Calcium 8.6 mg/dL (8.4-10.2); Carbon Dioxide 31 mmol/L (22-30); Chloride 102 mmol/L (98-107); Estimated Glomerular Filt Rate > 60; Glucose 110 mg/dL (65-110); Potassium 4.6 mmol/L (3.4-5.0); Sodium 136 mmol/L (137-145)
== END 2023-04-05 09:47 | disposition home or self-care (01) ==
PROVIDERS: PCP Nurse Practitioner Family
DX: I48.91 Unspecified atrial fibrillation (principal); I48.3 Typical atrial flutter
CPT/HCPCS: 36415; 80048; 85025

== ENCOUNTER 2023-06-16 11:58 | Outpatient (CLI) | payer MEDICARE, SELFPAY ==
[2023-06-16 12:24] LABS: Basophils Percent Auto 0.6 % (0.2-1.2); Eosinophils Absolute Auto 0.1 K/mm3 (0-0.3); Eosinophils Percent Auto 1.7 % (0-4.4); Hematocrit 45.7 % (42.0-52.0); Hemoglobin 14.9 g/dL (14.0-18.0); Immature Granulocyte Absolute 0.02 K/mm3 (0.00-0.031); Immature Granulocyte Percent A 0.3 % (0-0.5); Lymphocytes Absolute Auto 1.88 K/mm3 (0.9-3.2); Lymphocytes Percent Auto 28.8 % (18.3-44.2); Mean Corpuscular HGB Conc 32.6 g/dl (32-36); Mean Corpuscular Hemoglobin 31.2 pg (26-34); Mean Corpuscular Volume 95.6 fl (80-100); Monocytes Absolute Auto 0.6 K/mm3 (0.1-0.6); Monocytes Percent Auto 9.2 % (2.6-8.5); Neutrophils Absolute Auto 3.9 K/mm3 (1.3-6.7); Neutrophils Percent Auto 59.4 % (45.5-73.1); Platelet Count Result 260 k/mm3 (150-375); Red Blood Count 4.78 M/mm3 (4.6-6.20); Red Cell Distribution Width 13.2 % (11.5-14.5); White Blood Count 6.5 K/mm3 (4.5-10.0)
[2023-06-16 12:37] LABS: Alanine Aminotransferase 37 U/L (6-50); Albumin Level 4.4 g/dL (3.5-5.1); Alkaline Phosphatase 82 U/L (38-126); Anion Gap 10 mmol/L (8-16); Aspartate Amino Transferase 35 U/L (17-59); Bilirubin,Total 0.6 mg/dL (0.2-1.3); Blood Urea Nitrogen 23 mg/dL (9-20); Calcium 9.1 mg/dL (8.4-10.2); Carbon Dioxide 26 mmol/L (22-30); Chloride 103 mmol/L (98-107); Cholesterol 193 mg/dL (0-200); Estimated Glomerular Filt Rate > 60; Glucose 129 mg/dL (65-110); HDL Direct 42 mg/dL; Potassium 4.4 mmol/L (3.4-5.0); Sodium 139 mmol/L (137-145); Triglycerides 249 mg/dL (<150)
[2023-06-16 12:48] LABS: LDL Cholesterol Direct 98 mg/dL
[2023-06-16 13:08] LABS: Prostate Specific Antigen 1.3 ng/mL (< OR = 4.0)
[2023-06-16 15:02] LABS: Hemoglobin A1C 5.6 % (<5.7)
[2023-06-16 15:11] LABS: Appearance Urine Clear (Clear); Bacteria Urine None Seen /hpf; Bilirubin Urine Negative (Negative); Blood Urine Trace (Negative); Color Urine Yellow (Yellow); Glucose Urine UA Negative (Negative); Ketones Urine Negative (Negative); Leukocyte Esterase Ur Negative LEU/UL (NEGATIVE); Nitrate Urine Negative (Negative); Non Pathogenic Casts 0-2; Protein Urine Negative (Negative); RBC Urine 0-2 /hpf (0-2); Specific Grav Ur 1.018 (1.001-1.035); Squamous Epithelial Cell Urine None seen /hpf (Few); Urobilinogen Urine 0.2 mg/dL (<2.0); WBC Urine 0-5 /hpf (0-3); pH Urine 6.5 (5.0-9.0)
[2023-06-16 15:26] LABS: Add Urine Microscopic? YES
[2023-06-22 20:51] LABS: Testosterone Free 40.6 pg/mL (35.0-155.0); Testosterone Total 276 ng/dL (250-1100)
== END 2023-06-16 11:59 | disposition home or self-care (01) ==
PROVIDERS: PCP Nurse Practitioner Family; Visit Provider Nurse Practitioner Family
DX: Z12.5 Encounter for screening for malignant neoplasm of prostate (principal); Z00.00 Encounter for general adult medical examination without abnormal findings; Z13.29 Encounter for screening for other suspected endocrine disorder; I48.91 Unspecified atrial fibrillation; G47.33 Obstructive sleep apnea (adult) (pediatric); Z13.6 Encounter for screening for cardiovascular disorders; R68.82 Decreased libido; R73.09 Other abnormal glucose
CPT/HCPCS: 36415; 80048; 80061; 80076; 81001; 83036; 84153; 84402; 84403; 84443; 85025; G0103

== ENCOUNTER 2023-10-25 06:33 | Observation (INO) | payer MEDICARE, SELFPAY ==
[2023-10-25] VITALS (26 sets, daily range): BP systolic 124–196; BP diastolic 74–111; PULSE 58–82; RESP 15–24; TEMP 35.8–36.8; O2SAT 94–100; BMI 33.3
--- NOTE | 2023-10-25 | ECHO_ITS ---
Patient Info Name: David Stewart Age: 68 years : 1955 Gender: Male Ht: 69 in Wt: 225 lbs BSA: 2.26 m2 HR: 63 bpm BP: 152 / 92 mmHg Heart Rhythm: Sinus Rhythm Technical Quality: Good Exam Date: 10/25/2023 3:29 PM Exam Location: Echo Lab Patient Status: Inpatient Admit Date: 10/25/2023 Staff Ordering Physician: Kayley Currie APRN Unix Analyst: Rubina Tomlin RDCS Attending Provider: Linn Reyes DO Referring Physician: Kush AGUERO; Exam Type: CA echo doppler color flow Study Info Indications - ELEVATED TROP, minimal pul edema on CTA Complete two-dimensional, color flow and Doppler transthoracic echocardiogram is performed. Summary 1. Complete two-dimensional, color flow and Doppler transthoracic echocardiogram is performed. 2. Left ventricular chamber dimension is normal. 3. Left ventricular systolic function is normal, estimated at 60-65%. 4. There is mildly increased left ventricular wall thickness. 5. The left ventricular diastolic function is grade III diastolic dysfunction. 6. Right ventricular systolic function is normal. 7. Left atrial chamber dimension is moderately enlarged. 8. Right atrial chamber dimension is mildly enlarged. 9. There is mild tricuspid valve regurgitation. Left Ventricle Left ventricular chamber dimension is normal. Left ventricular systolic function is normal, estimated at 60-65%. There is mildly increased left ventricular wall thickness. The left ventricular diastolic function is grade III diastolic dysfunction. Right Ventricle Right ventricular chamber dimension is normal. Right ventricular systolic function is normal. Left Atria Left atrial chamber dimension is moderately enlarged. Right Atria Right atrial chamber dimension is mildly enlarged. Atrial Septum Intact interatrial septum visualized by color flow imaging. Aortic Valve The aortic valve is probable trileaflet. There is no aortic valve stenosis. There is no aortic valve regurgitation. There is mild aortic valve calcification. Pulmonic Valve The pulmonic valve is not well visualized. Mitral Valve The mitral valve has thickened leaflets. There is trace mitral valve regurgitation. Tricuspid Valve There is mild tricuspid valve regurgitation. Pericardium/Pleural The pericardium appears epicardial fat pad. There is no pericardial effusion. Inferior Vena Cava Dilated inferior vena cava with >50% collapse upon inspiration consistent with elevated right atrial pressure, 8 mmHg. Aorta The aortic root size at the sinus of Valsalva is normal. Left Ventricular Outflow Tract Name Value Normal LVOT 2D LVOT Diameter 2.1 cm LVOT Doppler LVOT Peak Gradient 3 mmHg LVOT Mean Gradient 3 mmHg LVOT VTI 20 cm LVOT VTI/AV VTI Ratio 0.7 LVOT Stroke Volume 70 ml LVOT CO 5.1 l/min LVOT CI 2.3 l/min/m2 Pulmonic Valve Name Value Normal
--- NOTE | ~2023-10-25 | CT_ITS ---
Clinical Indication: Shortness of breath CT Scan of the Chest with Contrast: Technique: Contiguous sections were acquired throughout the chest after intravenous administration of 100 cc of Omnipaque 350. Dose reduction technique was used on this scan by utilizing automated expos ure control and iterative reconstruction technique. The dose-length product (DLP) was 707.17 mGy-cm. Findings: There is no evidence of any significant mediastinal, hilar or axillary lymphadenopathy. There is no f illing defect in the pulmonary arterial tree to suggest pulmonary embolus. There is no evidence of ao rtic dissection or aneurysm. There are minimal bilateral pleural effusions. No pericardial effusion. Mild diffuse interstitial thickening and minimal groundglass opacities are compatible with minimal pu lmonary edema. Images through the upper abdomen reveal no abnormalities. Impression: No evidence of pulmonary embolus, aortic dissection, or aortic aneurysm. Minimal alveolar and interstitial pulmonary edema. Minimal bilateral pleural effusions. Reviewed, dictated and finalized at [facility]. Impression: No evidence of pulmonary embolus, aortic dissection, or aortic aneurysm. Minimal alveolar and interstitial pulmonary edema. Minimal bilateral pleural effusions.
--- NOTE | ~2023-10-25 | CT_ITS ---
EXAMINATION: CT abdomen pelvis wo con DATE: 10/26/2023 16:32 INDICATION: Abdominal pain. Elevated white blood cell count. TECHNIQUE: Computed tomography (CT) of the abdomen and pelvis was performed without intravenous contr ast. The dose-length product was 1290.69 mGy-cm. Automated exposure control and iterative reconstruct ion technique were employed. COMPARISON: CTA chest dated 10/25/2023. FINDINGS: Small pleural effusions with bibasilar atelectasis. Heart size normal. No significant vascu lar abnormality. There is left renal atrophy. There is high density material in the bladder lumen, co nsistent with contrast from previous CT. The liver, spleen, pancreas, adrenal glands are unremarkable. There is a 1.5 cm right renal cyst. The re is a 2 mm nonobstructing left renal stone. Nonobstructive bowel gas pattern. Normal appendix. Smal l fat-containing inguinal hernias. Mild atherosclerosis of the aorta without aneurysm. No lymphadenop athy. No free air or free fluid. Small sclerotic lesions in the right pelvis, likely benign in the ab sence of known malignancy. Clinically correlate. There is lower thoracic spondylosis. IMPRESSION: 1. No acute abdominal abnormality. 2: Nonobstructing left nephrolithiasis. 3: Small pleural effusions with bibasilar atelectasis. Reviewed, dictated and finalized at location A.
--- NOTE | ~2023-10-25 | XR_ITS ---
Portable chest x-ray Comparison: None Clinical History: Dyspnea Findings: Lungs are clear, without focal consolidation or pleural effusion. Cardiomediastinal silho uette is unremarkable. Bones and soft tissues are unremarkable. Impression: Clear lungs. Reviewed, dictated and finalized at location M. Impression: Clear lungs.
--- NOTE | 2023-10-25 06:40 | ECG_ITS ---
Measurements Intervals [place] Rate: 79 P: 263 ID: 150 QRS: -12 QRSD: 126 T: 27 QT: 395 Avg RR 751 QTc: 430 QTcB 455 QTcF 434 Interpretive Statements SINUS RHYTHM RIGHT BUNDLE BRANCH BLOCK [120+ ms QRS DURATION, UPRIGHT V1, 40+ ms S IN I/aVL/V4/V5/V6] ABNORMAL ECG SEE SCANNED COPY FOR SIGNATURE MTDD
[2023-10-25 06:55] LABS: Basophils Absolute Auto 0.1 K/mm3 (0.0-0.1); Basophils Percent Auto 0.5 % (0.2-1.2); Eosinophils Absolute Auto 0.2 K/mm3 (0-0.3); Eosinophils Percent Auto 1.9 % (0-4.4); Hematocrit 45.1 % (42.0-52.0); Hemoglobin 14.9 g/dL (14.0-18.0); Immature Granulocyte Absolute 0.04 K/mm3 (0.00-0.031); Immature Granulocyte Percent A 0.4 % (0-0.5); Lymphocytes Absolute Auto 2.98 K/mm3 (0.9-3.2); Lymphocytes Percent Auto 26.3 % (18.3-44.2); Mean Corpuscular Hemoglobin 32.3 pg (26-34); Mean Corpuscular Volume 97.6 fl (80-100); Mean Platelet Volume 10.2 fl (7.4-10.4); Monocytes Absolute Auto 1.1 K/mm3 (0.1-0.6); Monocytes Percent Auto 9.4 % (2.6-8.5); Neutrophils Percent Auto 61.5 % (45.5-73.1); Platelet Count Result 258 k/mm3 (150-375); Red Blood Count 4.62 M/mm3 (4.6-6.20); White Blood Count 11.3 K/mm3 (4.5-10.0)
--- NOTE | 2023-10-25 07:00 | ED.GENADULT ---
HPI - General Adult General Chief complaint: Shortness of Breath/Dyspnea <James Pineda MD - Last Filed: 10/25/23 07:02> Stated complaint: SOB <James Pineda MD - Last Filed: 10/25/23 07:02> Time Seen by Provider: 10/25/23 06:40 <James Pineda MD - Last Filed: 10/25/23 07:02> History of Present Illness HPI narrative: Patient is a 68-year-old gentleman presents emergency department chief complaint of shortness of breath. Patient reports that he started having severe shortness of breath II a.m. EMS was called and was found to be 84% on room air patient was given 10 mg of Decadron placed on CPAP by EMS and had oxygen saturations have improved patient has prior history of atrial fibrillation and pneumonia. <James Pineda MD - Last Filed: 10/25/23 07:02> Related Data Home medications: Home Medications Medication Instructions Recorded Confirmed ascorbic acid (vitamin C) 500 mg 500 mg PO DAILY 06/15/22 09/22/23 tablet cholecalciferol (vitamin D3) 25 25 mcg PO DAILY 06/15/22 09/22/23 mcg (1,000 unit) capsule docusate sodium 100 mg capsule 100 mg PO BID 06/15/22 09/22/23 magnesium oxide 500 mg capsule 400 mg PO DAILY 06/15/22 09/22/23 zinc sulfate 50 mg zinc (220 mg) 50 mg PO DAILY 06/15/22 09/22/23 capsule (Orazinc) milk thistle 500 mg capsule 1,000 mg PO DAILY 08/19/22 09/22/23 sotalol 80 mg tablet 80 mg PO BID 08/19/22 09/22/23 vitamin B complex (B 1 tablet PO DAILY 08/19/22 09/22/23 Complex-Vitamin B12 tablet) <James Pineda MD - Last Filed: 10/25/23 07:02> Allergies/adverse reactions: Allergies Allergy/AdvReac Type Severity Reaction Status Date / Time Sulfa (Sulfonamide Allergy Rash Verified 09/22/23 09:44 Antibiotics) meperidine [From Demerol] AdvReac Unknown Hallucinati Verified 09/22/23 09:44 ng <James Pineda MD - Last Filed: 10/25/23 07:02> Review of Systems Review of Systems: A 10 system review of systems was completed on the patient and is negative except for what is stated in the HPI. Nursing and ancillary documentation was reviewed. <James Pineda MD - Last Filed: 10/25/23 07:02> [facility] Past Medical History Medical History: Medical History Atrial fibrillation BMI 32.0-32.9,adult Colon cancer screening Decreased libido Elevated glucose Encounter to establish care Hemorrhoid HTN (hypertension) Hx of colonic polyp Hypersomnia Irregular heart rate Nocturia Rectal bleeding Snoring Urinary urgency <James Pineda MD - Last Filed: 10/25/23 07:02> Surgical History Surgical History: Surgical History History of kidney surgery <James Pineda MD - Last Filed: 10/25/23 07:02> Family History Family History: Family History Sibling Alcohol abuse Mother Asthma Hypertension Grandparent Cancer Cerebrovascular accident <James Pineda MD - Last Filed: 10/25/23 07:02> Social History Social History: Social History Smoking packs per day: 1 Smoking cigarettes per day: 20.0 Years smoked: 10 Smoking pack-years: 10.00 Smoking status: Former smoker Tobacco type: cigarettes Smokeless tobacco user: chewing tobacco Additional smoking assessment comments: quit in 84 Alcohol intake: former Substance use: never Substance use type: does not use Lack of Transportation: No Lack of Food: Never True Current Housing: I Have Housing Concerned About Future Housing: No Difficulty Paying Gas/Electric Bills: No Difficulty Paying for Meds: YES Currently Unemployed: No Education: Associate Degree Difficulty w/ Childcare or Family Care: No Living ar
[2023-10-25 07:05] LABS: Alanine Aminotransferase 42 U/L (6-50); Albumin Level 4.4 g/dL (3.5-5.1); Alkaline Phosphatase 81 U/L (38-126); Anion Gap 2 mmol/L (4-12); Aspartate Amino Transferase 39 U/L (17-59); Bilirubin,Total 0.9 mg/dL (0.2-1.3); Blood Urea Nitrogen 18 mg/dL (9-20); Calcium 8.9 mg/dL (8.4-10.2); Carbon Dioxide 31 mmol/L (22-30); Chloride 103 mmol/L (98-107); Estimated CRCL calculation 74 ml/min; Estimated Glomerular Filt Rate > 60; Glucose 145 mg/dL (65-110); Potassium 4.6 mmol/L (3.4-5.0); Sodium 136 mmol/L (137-145)
[2023-10-25 07:15] LABS: Alveolar/Arterial O2 Gradient 124.9 mmHg; Base Excess ABG -1.6 mEq/l (+/-2.0); Device NON-INVASIVE VENT; Fractional Inspired Oxygen 40 %; Modified Allen's Test Pass; Oxygen Content ABG 20.9 %vol (16.0-22.0); Oxygen Saturation ABG 98.2 % (95.0-100.0); Oxyhemoglobin 96.4 % THb (90.0-100.0); PCO2 ABG 38.8 mmHg (35.0-45.0); PO2 ABG 115.7 mmHg (80.0-100.0); PO2 FiO2 Ratio Arterial Blood 2.89 %; Site Drawn LEFT RADIAL; Total Hemoglobin 15.3 g/dL (12.0-18.0); pH ABG 7.391 (7.350-7.450)
[2023-10-25 07:16] LABS: Non-Invasive Expiratory Pressure 8 CMH2O; Non-Invasive Inspiratory Pressure 16 CMH2O; Non-Invasive Vent Rate 18 /MIN
[2023-10-25 07:17] LABS: NT Pro B Type Natriuretic Pept 427 pg/mL (19.9-100); Troponin I < 0.012 ng/mL (0.000-0.034)
[2023-10-25 07:19] LABS: INR 1.1; Prothrombin Time 14.2 Seconds (11.1-14.7)
[2023-10-25 07:20] LABS: Partial Thromboplastin Time 32.4 Seconds (22.3-36.8)
--- NOTE | 2023-10-25 07:27 | ECG_ITS ---
Measurements Intervals [place] Rate: 75 P: -30 [place]: 215 QRS: -5 QRSD: 123 T: 28 QT: 399 Avg RR 799 QTc: 427 QTcB 446 QTcF 429 Interpretive Statements SINUS RHYTHM WITH FIRST DEGREE AV BLOCK RIGHT BUNDLE BRANCH BLOCK [120+ ms QRS DURATION, UPRIGHT V1, 40+ ms S IN I/aVL/V4/V5/V6] ABNORMAL ECG SEE SCANNED COPY FOR SIGNATURE MTDD
[2023-10-25 07:31] LABS: Influenza A QL RT-PCR Negative (Negative); Influenza B QL RT-PCR Negative (Negative); RSV RNA, RT-PCR Negative (Negative); SARS-CoV-2 RNA PCR Negative (Negative)
--- NOTE | 2023-10-25 08:09 | PC.NURSE ---
Pt in CT scan.
--- NOTE | 2023-10-25 08:26 | PC.NURSE ---
Pt assisted to side of bed to attempt for urine sample. Pt unable to provide urine sample at this time.
[2023-10-25] MEDS: IPRATROPIUM 0.5 MG/ALBUTEROL SULFATE 2.5 MG AMPUL.NEB 3 ML INHALATION (09:14)
--- NOTE | 2023-10-25 09:51 | ECG_ITS ---
Measurements Intervals [place] Rate: 67 P: -24 MT: 208 QRS: -5 QRSD: 124 T: 18 QT: 442 Avg RR 885 QTc: 458 QTcB 469 QTcF 460 Interpretive Statements SINUS RHYTHM WITH OCCASIONAL SUPRAVENTRICULAR PREMATURE COMPLEXES RIGHT BUNDLE BRANCH BLOCK [120+ ms QRS DURATION, UPRIGHT V1, 40+ ms S IN I/aVL/V4/V5/V6] ABNORMAL ECG SEE SCANNED COPY FOR SIGNATURE MTDD
[2023-10-25 10:09] LABS: Troponin I 0.185 ng/mL (0.000-0.034)
[2023-10-25] MEDS: HEPARIN SOD/D5W 100 UNITS/ML 25,000 UNITS/250 ML BAG 10 UNITS IV CONT (10:31)
[2023-10-25] MEDS: HEPARIN SODIUM 5,000 UNITS/ML VIAL 4000 UNITS IV PUSH (10:31)
[2023-10-25 11:07] LABS: Appearance Urine Clear (Clear); Bacteria Urine None Seen /hpf; Bilirubin Urine Negative (Negative); Blood Urine 1+ (Negative); Color Urine Yellow (Yellow); Glucose Urine UA Negative (Negative); Ketones Urine Negative (Negative); Leukocyte Esterase Ur Negative LEU/UL (Negative); Nitrate Urine Negative (Negative); Non Pathogenic Casts 0-2; Protein Urine Negative (Negative); Squamous Epithelial Cell Urine None Seen /hpf (Few); WBC Urine 0-5 /hpf (0-3); pH Urine 5.5 (5.0-9.0)
[2023-10-25 11:14] LABS: Add Urine Microscopic? YES; Specific Grav Ur 1.059 (1.001-1.035)
[2023-10-25] MEDS: SOTALOL HCL 80 MG TABLET PO ×2 (11:14→21:02)
--- NOTE | 2023-10-25 12:44 | PM.IMHP ---
H&P: HPI History of Present Illness Date/Time: 10/25/23 12:44 Chief Complaint: SOB Narrative: 68 y/o M presents here with shortness of breath with PMH of AFib/AFlutter (persistent, on Eliquis), HTN, and hypersomnia. Patient presented here from home via EMS for further evaluation of shortness of breath. Patient reports that he became acutely shortness of breath around 2:00 a.m. while patient was getting up from sleeping to use the restroom. Described as severe, steadily worsening, and was only slightly alleviated with rest. No other alleviating or aggravating factors. Associated palpitations. EMS was called, upon their arrival he was found to be 84% on RA. Given 10 mg of Decadron and placed on CPAP while in route. Arrived with O2 sat of 100% on BiPAP. Now 95% on RA. Denies fever, chills, body aches, chest pain, diaphoresis, or URI symptoms. Reports intermittent cough and sputum production for the past year as well as a post-nasal drip secondary to allergies. Former smoker, cessation in 1983, smoked for 10 years and 1 PPD. 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 Currently endorsing mild right sided chest pain that is described achy, brief (lasted approximately 15 minutes), worsened with deep inspiration, non-radiating, spontaneously resolved. Initial VS at presentation: 96.5? F, HR 82, RR 24, 196/111, and 100% on BiPAP. Currently 95% on RA. ED workup showed: WBC 11.3, no anemia, sodium 136, creatinine 1.0 with GFR of >60, glucose 145, initial troponin negative (2nd positive), BNP 427, and no significant derangements on initial ABG. CXR showed clear lungs. CTA of the chest showed no PE/aortic dissection/aortic aneurysm, minimal alveolar interstitial pulmonary edema, and minimal bilateral pleural effusions. Viral PCR negative for Flu, RSV, and COVID. Review of Systems Review of Systems: All systems reviewed & are unremarkable except as noted in HPI and below PMFSH Past Medical History Medical History Atrial fibrillation BMI 32.0-32.9,adult Colon cancer screening Decreased libido Elevated glucose Encounter to establish care Hemorrhoid HTN (hypertension) Hx of colonic polyp Hypersomnia Irregular heart rate Nocturia Rectal bleeding Snoring Urinary urgency Surgical History Surgical History History of kidney surgery Family History Family History Sibling Alcohol abuse Mother Asthma Hypertension Grandparent Cancer Cerebrovascular accident Social History Social History (Updated 10/25/23 @ 16:51 by Kayley Currie, OWEN) Social History: previous gambling history that had a social impact on his life. Smoking packs per day: 1 Smoking cigarettes per day: 20.0 Years smoked: 10 Smoking pack-years: 10.00 Smoking status: Former smoker Tobacco type: cigarettes Smokeless tobacco user: chewing tobacco Additional smoking assessment comments: quit in 84 Alcohol intake: former Substance use: never Substance use type: does not use Do You Feel Safe in your Home?: Yes Lack of Transportation: No Lack of Food: Never True Current Housing: I Have Housing Concerned About Future Housing: No Difficulty Paying Gas/Electric Bills: No Difficulty Paying for Meds: No Currently Unemployed: No Education: Trade/Vocational Certificate Difficulty w/ Childcare or Family Care: No Living arrangements: alone Additional occupation/education comments: has had multiple jobs over the years: 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 Spiritual care concerns: No Meds Home
[2023-10-25 13:47] LABS: Troponin I 0.327 ng/mL (0.000-0.034)
--- NOTE | 2023-10-25 15:31 | PM.CNCAR ---
Assessment and Plan Assessment and plan (1) Hypertensive emergency: Code(s): I16.1 - Hypertensive emergency Status: Acute Assessment and Plan: Had acute onset shortness of breath. Upon arrival to the ED, his blood pressure was 196/111mmHg. CTA showed minimal pulmonary edema, pleural effusions (after being on BIPAP therapy). Blood pressure is improved, however, still elevated in the 150s. Of note, patient had an appointment with his PCP last month, and his blood pressure was 159/105mmHg. Not on any medications at home. Will start Lisinopril 20mg once daily. Echocardiogram ordered and pending. (2) Non-ST elevation [place] (NSTEMI): Code(s): I21.4 - Non-ST elevation (NSTEMI) myocardial infarction Status: Acute Assessment and Plan: Initial troponin negative. Second troponin elevated at 0.185, third troponin level at 0.327. Patient reports he had a little bit of right sided chest pain in the ED, but this was brief and resolved and has not recurred. EKGs show sinus rhythm with RBBB. Cannot compare them to the old EKGs in the system as our EKG system is not working and cannot view prior EKGs. Troponin elevation may be due to demand ischemia in the setting of hypertensive emergency, however, cannot rule out acute coronary syndrome at this time. His Eliquis has been placed on hold and he has been started on Heparin drip. Will continue Heparin drip for now. Continue to trend his troponins until they peak. Echocardiogram ordered and will be reviewed. (3) Atrial fibrillation: Code(s): I48.91 - Unspecified atrial fibrillation Status: Acute Assessment and Plan: Currently in sinus. Continue Sotalol. Holding Eliquis for now, on Heparin drip. (4) HTN (hypertension): Code(s): I10 - Essential (primary) hypertension Status: Acute Assessment and Plan: As above. Plan Recommendations and plan discussed with Hospitalist. History of Present Illness History of Present Illness Consult date/time: 10/25/23 15:31 Requesting physician: Shelton Muñoz MD Consult reason: Other (Elevated troponin) Reason For Visit: NSTEMI Narrative: We are consulted for elevated troponin. This is a 68 year old patient of Dr. Jeong's with persistent atrial fibrillation/flutter on Sotalol & Eliquis who presented with acute onset shortness of breath that began around 2AM. Patient states he was about to fall asleep and was nodding off when he developed acute onset of shortness of breath. EMS was called and was noted that patient was saturating at 84%. He was placed on CPAP by EMS with improvement in oxygenation. Was on BIBPAP in the ED. Upon arrival to the ED, his blood pressure was 196/111mmHg. CTA was then obtained which showed minimal pulmonary edema, pleural effusions. Initial troponin negative. Second troponin elevated at 0.185, third troponin level at 0.327. Patient reports he had a little bit of right sided chest pain in the ED, but this was brief and resolved and has not recurred. Patient is feeling comfortable now in the IMU. EKGs show sinus rhythm with RBBB. Cannot compare them to the old EKGs in the system as our EKG system is not working and cannot view prior EKGs. Patient is on Eliquis, took his last dose on evening of 10/23. Of note, patient had an appointment with his PCP last month, and his blood pressure was 159/105mmHg. Review of Systems Review of Systems: All systems reviewed & are unremarkable except as noted in HPI and below (HPI) [facility] Past Medical History Medical History Atrial fibrillation BMI 32.0-32.9,adult Colon cancer screening Decreased libido Elevated glucose Encounter to establish care Hemorrhoid HTN (hypertension) Hx of colonic polyp Hypersomnia Irregular heart rate Nocturia Rectal bleeding Snoring Urinary urgency Surgical History Surgical History History
[2023-10-25] MEDS: lisinopriL 20 MG TABLET PO (16:53)
[2023-10-25 17:25] LABS: Troponin I 0.339 ng/mL (0.000-0.034)
[2023-10-25] MEDS: HEPARIN SODIUM 5,000 UNITS/ML VIAL 3500 UNITS IV PUSH (18:40)
[2023-10-25 19:07] LABS: Hemoglobin A1C 5.6 % (<5.7)
[2023-10-25 20:16] LABS: Cholesterol 163 mg/dL (0-200); HDL Direct 54 mg/dL; Triglycerides 56 mg/dL (<150)
[2023-10-25 20:30] LABS: LDL Cholesterol Direct 93 mg/dL
[2023-10-25 20:49] LABS: Thyroid Stimulating Hormone 0.625 uIU/mL (0.465-4.680)
[2023-10-26] VITALS (14 sets, daily range): BP systolic 94–130; BP diastolic 52–66; PULSE 48–80; RESP 15–20; TEMP 36–36.8; O2SAT 94–98
[2023-10-26 01:59] LABS: Partial Thromboplastin Time 130.1 Seconds (22.3-36.8)
[2023-10-26 08:19] LABS: Basophils Percent Auto 0.1 % (0.2-1.2); Eosinophils Percent Auto 0.1 % (0-4.4); Hemoglobin 12.7 g/dL (14.0-18.0); Immature Granulocyte Absolute 0.11 K/mm3 (0.00-0.031); Immature Granulocyte Percent A 0.7 % (0-0.5); Lymphocytes Absolute Auto 1.41 K/mm3 (0.9-3.2); Lymphocytes Percent Auto 8.5 % (18.3-44.2); Mean Corpuscular HGB Conc 33.4 g/dl (32-36); Mean Corpuscular Hemoglobin 32.2 pg (26-34); Mean Corpuscular Volume 96.2 fl (80-100); Mean Platelet Volume 10.2 fl (7.4-10.4); Monocytes Absolute Auto 1.3 K/mm3 (0.1-0.6); Monocytes Percent Auto 8.1 % (2.6-8.5); Neutrophils Absolute Auto 13.7 K/mm3 (1.3-6.7); Neutrophils Percent Auto 82.5 % (45.5-73.1); Platelet Count Result 213 k/mm3 (150-375); Red Blood Count 3.95 M/mm3 (4.6-6.20); Red Cell Distribution Width 12.9 % (11.5-14.5); White Blood Count 16.6 K/mm3 (4.5-10.0)
[2023-10-26 08:27] LABS: Partial Thromboplastin Time 82.9 Seconds (22.3-36.8)
[2023-10-26] MEDS: HEPARIN SOD/D5W 100 UNITS/ML 25,000 UNITS/250 ML BAG 10 UNITS IV CONT (09:41)
[2023-10-26] MEDS: PANTOPRAZOLE SODIUM IV 40 MG VIAL IV PUSH (09:43)
--- NOTE | 2023-10-26 10:19 | PM.PNCARD ---
Progress Note: A&P Assessment and Plan (1) Hypertensive emergency: Code(s): I16.1 - Hypertensive emergency Status: Acute Assessment and Plan: Had acute onset shortness of breath. Upon arrival to the ED, his blood pressure was 196/111mmHg. CTA showed minimal pulmonary edema, pleural effusions (after being on BIPAP therapy). Of note, patient had an appointment with his PCP last month, and his blood pressure was 159/105mmHg. Blood pressure has normalized at this point. Continue lisinopril 20mg daily Echo showed normal LV systolic function, EF 60-65%, grade III diastolic dysfunction. No WMA. Will add spironolactone for BP control and for the diastolic dysfunction Monitor BP closely and can decrease KERRY dose if BP becomes too low with addition of spironolactone Can consider addition of SGLT2i for the diastolic dysfunction as well Reviewed pathophysiology of diastolic dysfunction and ongoing management including blood pressure control and weight loss. Will consult edi specialist to review low Na diet for CHF, weight loss strategies. Can consider GLP1 for weight loss OK for discharge today from a cardiac perspective (2) Non-ST elevation [place] (NSTEMI): Code(s): I21.4 - Non-ST elevation (NSTEMI) myocardial infarction Status: Acute Assessment and Plan: Initial troponin negative. Second troponin elevated at 0.185, third troponin level at 0.327. Patient reports he had a little bit of right sided chest pain in the ED, but this was brief and resolved and has not recurred. EKGs show sinus rhythm with RBBB. Cannot compare them to the old EKGs in the system as our EKG system is not working and cannot view prior EKGs. Suspect troponin elevation due to demand ischemia in the setting of hypertensive emergency. Downtrended yesterday. Cannot rule out underlying CAD, but as he is asymptomatic and troponin downtrended, would be reasonable to pursue outpatient stress testing. D/c heparin and resume Eliquis as we do not plan on any invasive ischemic evaluation. Echo results as above. (3) Atrial fibrillation: Code(s): I48.91 - Unspecified atrial fibrillation Status: Acute Assessment and Plan: Currently in sinus. Continue Sotalol. Resume Eliquis. (4) HTN (hypertension): Code(s): I10 - Essential (primary) hypertension Status: Acute Assessment and Plan: As above. Subjective Date/time seen: 10/26/23 10:19 Interval history: Cardiology follow up for CHF, HTN, Afib Date of service 10/26/2023: He feels well this morning and has no cardiovascular complaints; Denies chest pain, shortness of breath. He has been ambulating with no dyspnea with exertion. Review of Systems Review of Systems: All systems reviewed & are unremarkable except as noted in HPI and below (HPI) Exam Const: General: comfortable and no acute distress Other: Obese male HENMT: Mouth: Yes moist mucous membranes Eyes: General: appearance normal, both eyes and all related structures Sclera: sclerae normal Resp: Effort & Inspection: normal respiratory effort Auscultation: clear to auscultation bilaterally and no rales Cardio: Rate: regular rate Rhythm: regular rhythm Heart sounds: no murmurs Skin: General skin exam: normal color Neuro: Speech: normal speech Extrem: Other: No edema Psych: Mental Status: mental status grossly normal Affect: normal affect Objective Data Vital Signs Vital Signs: Vital Signs - 24 hr 10/25/23 10:49 10/25/23 11:11 10/25/23 11:14 Temperature 36.5 C Pulse Rate 77 74 66 Respiratory Rate 19 20 Blood Pressure 170/88 H 170/88 H Pulse Oximetry 95 95 Oxygen Delivery 10/25/23 11:35 10/25/23 12:00 10/25/23 12:00 Temperature 36.6 C Pulse Rate 70 63 Respiratory Rate 17 Blood Pressure 152/92 H Pulse Oximetry 95 Oxygen Delivery Room Air 10/25/23 14:00 10/25/23 16:00 10/25/23 16:00 Temperature 36.6 C Pulse Rate 64 66 R
[2023-10-26] MEDS: ASCORBIC ACID 500 MG TABLET PO (10:47)
[2023-10-26] MEDS: ZINC SULFATE 220 MG CAPSULE PO (10:47)
[2023-10-26] MEDS: SOTALOL HCL 80 MG TABLET PO (10:48)
[2023-10-26] MEDS: VITAMIN B COMPLEX CAPSULE 1 CAP PO (10:48)
[2023-10-26] MEDS: CHOLECALCIFEROL 1,000 UNITS TABLET 1000 UNITS PO (10:48)
[2023-10-26] MEDS: lisinopriL 20 MG TABLET PO (10:48)
[2023-10-26] MEDS: MAGNESIUM OXIDE 400 MG TABLET PO (10:48)
[2023-10-26] MEDS: SPIRONOLACTONE 12.5 MG TABLET PO (12:17)
[2023-10-26] MEDS: PROMETHAZINE HCL 25 MG TABLET PO (13:27)
--- NOTE | 2023-10-26 15:46 | PM.IMPN ---
Progress Note: A&P Assessment and Plan (1) Gastroenteritis: Code(s): K52.9 - Noninfective gastroenteritis and colitis, unspecified Status: Acute Assessment and Plan: Patient has developed new onset on nausea/vomiting and diarrhea. Also with abdominal bloating WBC climbing. No recent abx to suggest CDiff Consider colitis vs gastroenteritis. Patieint having stool accidents as well. CT Abd/pelvis showing no acute process. Check stool studies. Follow with supportive care (2) Elevated troponin: Code(s): R79.89 - Other specified abnormal findings of blood chemistry Status: Acute Assessment and Plan: Patient presents with SOB. EKG showing Rt BBB. CXR clear. CTA Chest: No evidence of pulmonary embolus, aortic dissection, or aortic aneurysm. Minimal alveolar and interstitial pulmonary edema. Minimal bilateral pleural effusions. Troponin to 0.339 Initial BP 196/111. Serena elevated Trop as a Type II ID related to HTN emergency. BP better controlled and now almost too well controlled. Hold lisinopril (3) Hypertensive emergency: Code(s): I16.1 - Hypertensive emergency Status: Acute Assessment and Plan: As above. Patient with hx of HTN but with significantly elevated BP upon arrival to the ED We continued home Sotalol and Lisinopril added Aldactone added by Cards BP too soft now so will hold Lisinopril Monitor (4) Hypoxia: Code(s): R09.02 - Hypoxemia Status: Acute Assessment and Plan: Initial SpO2 EMS was 84% and placed on CPAP. Probably related to elevated BP and mild pulmonary edema Weaned to RA now (5) Atrial fibrillation: Code(s): I48.91 - Unspecified atrial fibrillation Status: Acute Assessment and Plan: Hx of AFib. EKG showng normal sinus We continued Eliquis and Sotalol 80 mg BID (6) HTN (hypertension): Code(s): I10 - Essential (primary) hypertension Status: Acute Assessment and Plan: As above Plan DVT Prophylaxis: Eliquis Code Status: Full Code Subjective Date/time seen: 10/26/23 15:46 Interval history: 68yo male with AFib and HTN here for chest pain. Patient with nausea and 'explosive' diarrhea. no recent abx. Feels bloated. hx of IBS. No CP or SOB. Does have MINA but does not wear NIV at home. No sick contacts Exam Narrative: AF 96.9 119/63 65 16 95% ra Gen - NARD Chest - CTA bilaterally, nml RR CV - RRR S1/S2 Abd - Soft, NT/ND, Positive BS Ext - No pedal edema Psych - Nml mood and affect Skin - Warm and dry Objective Data Vital Signs Vital Signs: Vital Signs - 24 hr 10/25/23 16:00 10/25/23 16:00 10/25/23 16:00 Temperature 97.8 F Pulse Rate 66 66 Respiratory Rate 17 Blood Pressure 124/74 Pulse Oximetry 95 95 Oxygen Delivery Room Air 10/25/23 18:00 10/25/23 19:52 10/25/23 21:02 Temperature 98.2 F Pulse Rate 67 75 70 Respiratory Rate 15 Blood Pressure 156/80 H Pulse Oximetry 97 Oxygen Delivery 10/25/23 20:00 10/25/23 21:55 10/25/23 23:34 Temperature 97.2 F L Pulse Rate 70 70 66 Respiratory Rate 16 Blood Pressure 144/74 H Pulse Oximetry 96 Oxygen Delivery 10/26/23 00:00 10/26/23 04:00 10/26/23 04:00 Temperature 97.2 F L Pulse Rate 67 56 L Respiratory Rate 15 Blood Pressure 130/62 Pulse Oximetry 98 98 Oxygen Delivery Room Air 10/26/23 04:00 10/26/23 08:23 10/26/23 08:00 Temperature 96.8 F L Pulse Rate 53 L 57 L 60 Respiratory Rate 18 Blood Pressure 114/66 Pulse Oximetry 94 96 Oxygen Delivery Room Air 10/26/23 10:48 10/26/23 08:00 10/26/23 08:00 Temperature Pulse Rate 67 56 L Respiratory Rate Blood Pressure Pulse Oximetry Oxygen Delivery Room Air 10/26/23 10:00 10/26/23 11:57 10/26/23 12:00 Temperature 96.9 F L Pulse Rate 60 49 L Respiratory Rate 16 Blood Pressure 119/63 Pulse Oximetry 95 Oxygen Delivery Room
[2023-10-26] MEDS: APIXABAN 5 MG TABLET PO (22:35)
[2023-10-27] VITALS (7 sets, daily range): BP systolic 101–117; BP diastolic 59–66; PULSE 43–53; RESP 16–18; TEMP 36.3; O2SAT 96–99
[2023-10-27 04:19] LABS: Basophils Percent Auto 0.4 % (0.2-1.2); Eosinophils Percent Auto 0.4 % (0-4.4); Hematocrit 37.9 % (42.0-52.0); Hemoglobin 12.8 g/dL (14.0-18.0); Immature Granulocyte Absolute 0.06 K/mm3 (0.00-0.031); Immature Granulocyte Percent A 0.6 % (0-0.5); Lymphocytes Absolute Auto 3.34 K/mm3 (0.9-3.2); Lymphocytes Percent Auto 31.8 % (18.3-44.2); Mean Corpuscular HGB Conc 33.8 g/dl (32-36); Mean Corpuscular Hemoglobin 32.6 pg (26-34); Mean Corpuscular Volume 96.4 fl (80-100); Mean Platelet Volume 10.4 fl (7.4-10.4); Monocytes Absolute Auto 1.1 K/mm3 (0.1-0.6); Monocytes Percent Auto 10.1 % (2.6-8.5); Neutrophils Percent Auto 56.7 % (45.5-73.1); Platelet Count Result 212 k/mm3 (150-375); Red Blood Count 3.93 M/mm3 (4.6-6.20); Red Cell Distribution Width 13.3 % (11.5-14.5); White Blood Count 10.5 K/mm3 (4.5-10.0)
[2023-10-27 04:24] LABS: Alanine Aminotransferase 33 U/L (6-50); Albumin Level 3.8 g/dL (3.5-5.1); Alkaline Phosphatase 63 U/L (38-126); Anion Gap 3 mmol/L (4-12); Aspartate Amino Transferase 32 U/L (17-59); Blood Urea Nitrogen 23 mg/dL (9-20); Calcium 8.7 mg/dL (8.4-10.2); Carbon Dioxide 30 mmol/L (22-30); Chloride 103 mmol/L (98-107); Estimated CRCL calculation 63 ml/min; Estimated Glomerular Filt Rate 60; Glucose 100 mg/dL (65-110); Sodium 136 mmol/L (137-145)
[2023-10-27] MEDS: APIXABAN 5 MG TABLET PO (09:06)
[2023-10-27] MEDS: ASPIRIN 81 MG ENTERIC TABLET PO (09:06)
[2023-10-27] MEDS: SPIRONOLACTONE 12.5 MG TABLET PO (09:06)
[2023-10-27] MEDS: ZINC SULFATE 220 MG CAPSULE PO (09:06)
[2023-10-27] MEDS: MAGNESIUM OXIDE 400 MG TABLET PO (09:06)
[2023-10-27] MEDS: ASCORBIC ACID 500 MG TABLET PO (09:06)
[2023-10-27] MEDS: PANTOPRAZOLE SODIUM IV 40 MG VIAL IV PUSH (09:07)
[2023-10-27] MEDS: SOTALOL HCL 80 MG TABLET PO (09:07)
[2023-10-27] MEDS: VITAMIN B COMPLEX CAPSULE 1 CAP PO (09:07)
[2023-10-27] MEDS: CHOLECALCIFEROL 1,000 UNITS TABLET 1000 UNITS PO (09:07)
[2023-10-27 12:05] LABS: Magnesium 2.2 mg/dL (1.6-2.3)
--- NOTE | 2023-10-27 14:07 | PM.PNCARD ---
Progress Note: A&P Assessment and Plan (1) Atrial fibrillation: Code(s): I48.91 - Unspecified atrial fibrillation Status: Acute Plan 68-year-old man with: Paroxysmal atrial fibrillation maintaining sinus rhythm on sotalol treatment following ablation of AF last year. He is asymptomatically bradycardic at times in his very concerned about this. I am going to reduce his sotalol dosage to 40 mg twice daily. I will ensure that he has short interval follow-up scheduled in my office after this dosage adjustment. From my perspective he is stable enough for discharge at this time Marvel Jeong MD [facility] Subjective Date/time seen: Date of service: 10/27/23 14:07 Interval history: Cardiology follow up for CHF, HTN, Afib Date of service 10/26/2023: He feels well this morning and has no cardiovascular complaints; Denies chest pain, shortness of breath. He has been ambulating with no dyspnea with exertion. Date of service 10/27/2023: Patient is asymptomatic no chest pain no shortness of breath. He is expressing concerns about sinus bradycardia that he is noticing on his monitoring analyst that he is watching his room. Exam Const: General: comfortable and no acute distress Other: Obese male HENMT: Mouth: Yes moist mucous membranes Eyes: General: appearance normal, both eyes and all related structures Sclera: sclerae normal Resp: Effort & Inspection: normal respiratory effort Auscultation: clear to auscultation bilaterally and no rales Cardio: Rate: regular rate Rhythm: regular rhythm Heart sounds: no murmurs Skin: General skin exam: normal color Neuro: Speech: normal speech Extrem: Other: No edema Psych: Mental Status: mental status grossly normal Affect: normal affect Objective Data Vital Signs Vital Signs: Vital Signs - 24 hr 10/26/23 16:00 10/26/23 16:00 10/26/23 18:00 Temperature 36.8 C Pulse Rate 57 L 80 54 L Respiratory Rate 20 Blood Pressure 107/59 L Pulse Oximetry 98 Oxygen Delivery 10/26/23 20:00 10/26/23 20:00 10/26/23 20:00 Temperature 36.8 C Pulse Rate 50 L 53 L Respiratory Rate 16 Blood Pressure 98/57 L Pulse Oximetry 96 Oxygen Delivery Room Air 10/26/23 22:20 10/26/23 23:51 10/27/23 00:00 Temperature 36.1 C L Pulse Rate 48 L 54 L 47 L Respiratory Rate 15 Blood Pressure 94/52 L Pulse Oximetry 97 Oxygen Delivery 10/27/23 04:00 10/27/23 08:00 10/27/23 09:07 Temperature 36.3 C L Pulse Rate 49 L 51 L 53 L Respiratory Rate 18 Blood Pressure 101/59 L Pulse Oximetry 99 Oxygen Delivery 10/27/23 09:41 10/27/23 08:00 10/27/23 08:00 Temperature Pulse Rate 52 L Respiratory Rate Blood Pressure Pulse Oximetry 96 Oxygen Delivery Room Air Room Air 10/27/23 09:00 10/27/23 12:00 10/27/23 12:00 Temperature 36.3 C L Pulse Rate 52 L 45 L 43 L Respiratory Rate 16 Blood Pressure 117/66 Pulse Oximetry 96 Oxygen Delivery Intake/Output Intake/Output: Intake & Output 10/24/23 10/25/23 10/26/23 10/27/23 23:59 23:59 23:59 23:59 Intake Total 589.9 1426.8 1440 Output Total 1030 1800 900 Balance -440.1 -373.2 540 Meds/Results Medications: Active Medications Generic Name Dose Route Start Last Admin Trade Name Freq PRN Reason Stop Dose Admin Acetaminophen 650 mg 10/25/23 10:30 Acetaminophen 325 Mg Tablet PO Q4H PRN Mild Pain (1-3) or Fever Hydrocodone Bitart/Acetaminophen 1 tab 10/25/23 10:30 Hydrocodone/Acetaminophen (*Crx) 5-325 Mg Tablet PO Q4H PRN Pain Rated 4-6 Albuterol/Ipratropium 3 ml 10/25/23 16:26 Ipratropium 0.5 Mg/Albuterol Sulfate 2.5 Mg Ampul.Neb 3 Ml INHALATION Q6HRT PRN Shortness Of Breath Or Wheezing Apixaban 5 mg 10/26/23 21:25 10/27/23 09:06 Apixaban 5 Mg Tablet PO 5 mg BID LAWANDA Administration Ascorbic Acid 500 mg 10/26/23 09:00 10/27/23 09:06 Ascorbic Acid 500
--- NOTE | 2023-10-27 14:54 | PM.DS ---
DS: Admitting Diagnosis Discharge Date 10/27/23 Admitting Diagnosis Shortness of breath DS: Discharge Diagnosis Discharge Diagnosis (1) Gastroenteritis: Code(s): K52.9 - Noninfective gastroenteritis and colitis, unspecified Status: Acute (2) Elevated troponin: Code(s): R79.89 - Other specified abnormal findings of blood chemistry Status: Acute (3) Hypertensive emergency: Code(s): I16.1 - Hypertensive emergency Status: Acute (4) Hypoxia: Code(s): R09.02 - Hypoxemia Status: Acute (5) Atrial fibrillation: Code(s): I48.91 - Unspecified atrial fibrillation Status: Acute (6) HTN (hypertension): Code(s): I10 - Essential (primary) hypertension Status: Acute DS: Summary Hospital Course Reason for hospitalization: 68yo male with AFib and HTN here for shortness of breath. Please see H&P for details. Hospital Course: Patient presented with SOB. He was hypoxic with initial SpO2 EMS was 84% and he was placed on CPAP. Possibly related to elevated BP and mild pulmonary edema. He was easily weaned to room air. EKG showing Rt BBB. CXR was clear. CTA chest showing no evidence of pulmonary embolus, aortic dissection, or aortic aneurysm. There was minimal alveolar and interstitial pulmonary edema and minimal bilateral pleural effusions. Troponin to 0.339. Patient with hx of HTN but with significantly elevated BP upon arrival to the ED. Initial BP 196/111. Forest elevated Trop as a Type II VT related to HTN emergency. We continued home Sotalol; Aldactone and Lisinopril added. BP was treated appropriately and became better controlled. sBP dropped to 100 and felt too well controlled so Lisinopril stopped. He has a history of AFib. EKG showing normal sinus and he was monitored on telemetry. He was also seen by Cardiology. We continued Eliquis and Sotalol 80 mg BID but his heart rate dropping into the high 40's at times so Sotalol dose decreased to 40mg BID. He did have one run of 5beat NSVT by Mag and potassium levels normal. Cardiology made aware. Patient did develop new onset on abdominal bloating, nausea/vomiting and diarrhea. WBC was up to 16K. No recent abx to suggest CDiff. CT Abd/pelvis showing no acute process. Stool studies ordered but diarrhea resolved. Forest he had gastroenteritis. He had clinical improvement. He was able to be discharged home on 10/27/23 Status at Discharge Cognitive/behavioral status at discharge: stable Time Spent with Patient Time attestation: Total time spent providing and/or coordinating discharge services: 35 minutes Time spent: Greater than 30 minutes Exam Narrative: AF 97.4 117/66 43 16 96% ra Gen - NARD Chest - CTA bilaterally, nml RR CV - RRR S1/S2 Abd - Soft, NT/ND, Positive BS Ext - trace pedal edema Psych - Nml mood and affect Skin - Warm and dry DS: Data Data Completed and Pending Labs on day of discharge: Labs from last 24 hours 10/27/23 10/27/23 04:04 03:59 WBC 10.5 H RBC 3.93 L Hgb 12.8 L Hct 37.9 L MCV 96.4 MCH 32.6 MCHC 33.8 RDW 13.3 Plt Count 212 MPV 10.4 Immature Gran % (Auto) 0.6 H Neut % (Auto) 56.7 Lymph % (Auto) 31.8 [place] % (Auto) 10.1 H Eos % (Auto) 0.4 Baso % (Auto) 0.4 Lymph # (Auto) 3.34 H [place] # (Auto) 1.1 H Eos # (Auto) 0.0 Baso # (Auto) 0.0 Abs Immat Gran (auto) 0.06 H Absolute Neuts (auto) 6.0 Absolute Nucleated RBC 0.000 Nucleated RBC % 0.0 Sodium 136 L Potassium 4.0 Chloride 103 Carbon Dioxide 30 Anion Gap 3 L BUN 23 H Creatinine 1.20 Estim Creat Clear Calc 63 Estimated GFR 60 Glucose 100 Calcium 8.7 Magnesium 2.2 Total Bilirubin 1.0 AST 32 ALT 33 Alkaline Phosphatase 63 Total Protein 7.0 Albumin 3.8 Discharge Plan Discharge Attending physician on discharge: James Giraldo Consulting providers: Valerie Cagle Discharging Clinician: James Giraldo
--- NOTE | 2023-10-30 10:35 | PC.NURSE ---
Spoke to pt who states he was in the hospital and dc on 10/26 with SOB. His bp is 176/95. Pt instructed to contact his PCP or go to Urgent Care/ ED. He states he did these things but wanted to make other calls. Instructed pt again of calling PCP or going to Urgent Care vs ED. Pt states he will wait till his systolic bp is 180.
== END 2023-10-27 15:50 | disposition home or self-care (01) ==
LOC: ANHED 10:21 → ANHIMU 11:25
PROVIDERS: Emergency Medicine; Internal Medicine; Student in an Organized Health Care Education/Training Program; Admitting Provider Student in an Organized Health Care Education/Training Program; Emergency Provider Emergency Medicine; PCP Nurse Practitioner Family; Visit Provider Internal Medicine
DX: I21.4 Non-ST elevation (NSTEMI) myocardial infarction (principal); I16.1 Hypertensive emergency; I11.9 Hypertensive heart disease without heart failure; I07.1 Rheumatic tricuspid insufficiency; K52.9 Noninfective gastroenteritis and colitis, unspecified; I48.91 Unspecified atrial fibrillation; N20.0 Calculus of kidney; J90 Pleural effusion, not elsewhere classified; R94.31 Abnormal electrocardiogram [ECG] [EKG]; G47.10 Hypersomnia, unspecified; Z20.822 Contact with and (suspected) exposure to COVID-19; R09.02 Hypoxemia; Z87.01 Personal history of pneumonia (recurrent); Z87.891 Personal history of nicotine dependence; Z79.01 Long term (current) use of anticoagulants; Z79.899 Other long term (current) drug therapy
CPT/HCPCS: 36415; 36600; 71045; 71275; 74176; 80053; 80061; 81001; 82805; 83036; 83605; 83735; 83880; 84145; 84443; 84484; 85025; 85610; 85730; 87637; 93005; 93306; 94002; 94640; 96365; 96366; 96375; 96376; 99291; A9270; C9113; G0378; J1644; Q9967

== ENCOUNTER 2023-10-30 17:09 | Emergency (ER) | payer MEDICARE, SELFPAY ==
[2023-10-30] VITALS (7 sets, daily range): BP systolic 140–166; BP diastolic 83–90; PULSE 67–76; RESP 14–26; TEMP 36.6; O2SAT 95–99
--- NOTE | ~2023-10-30 | XR_ITS ---
EXAMINATION: XR chest 2V DATE: 10/30/2023 21:32 INDICATION: Shortness of breath. Weakness. TECHNIQUE: Frontal and lateral views of the chest were obtained. COMPARISON: Chest view 10/25/2023, CT abdomen and pelvis 10/26/2023 FINDINGS: There is mild atelectasis at left lung base. No pleural effusion or pneumothorax. The heart size is normal. IMPRESSION: 1. Mild atelectasis at left lung base. Reviewed, dictated and finalized at location E.
--- NOTE | 2023-10-30 21:09 | ECG_ITS ---
SEE SCANNED COPY FOR CONFIRMED REPORT MTDD
--- NOTE | 2023-10-30 21:39 | ED.SOB ---
HPI - SOB/Dyspnea General Chief Complaint: Shortness of Breath/Dyspnea <Regi Cardona PA-C - Last Filed: 10/31/23 03:54> Stated Complaint: unsteady on feet <Regi Cardona PA-C - Last Filed: 10/31/23 03:54> Time Seen by Provider: 10/30/23 21:19 <Regi Cardona PA-C - Last Filed: 10/31/23 03:54> History of Present Illness HPI Narrative: 68-year-old male with a past medical history of AFib/a flutter who is chronically anticoagulated on Eliquis, and hypertension presents to emergency department for shortness of breath that started today at 2:00 p.m. Patient reports he is having a productive cough and some difficulty breathing. States he had some pain earlier on the right lateral aspect of his rib that lasted a few minutes and resolved. States it lasted a few minutes. Of note, patient was admitted to our hospital on 10/25/2023 discharged home 2 days later. He was found to be hypoxic and was diagnosed with an NSTEMI and hypertensive emergency. He was discharged on 10/27/2023. The patient presents today with a productive cough and increased difficulty breathing. Denies chest pain, nausea or vomiting, abdominal pain, dysuria or hematuria, fever, lower extremity edema. <Regi Cardona PA-C - Last Filed: 10/31/23 03:54> Related Data Home Medications: Home Medications Medication Instructions Recorded Confirmed ascorbic acid (vitamin C) 500 mg 500 mg PO DAILY 06/15/22 10/25/23 tablet cholecalciferol (vitamin D3) 25 25 mcg PO DAILY 06/15/22 10/25/23 mcg (1,000 unit) capsule docusate sodium 100 mg capsule 100 mg PO PRN 06/15/22 10/25/23 magnesium oxide 500 mg capsule 400 mg PO DAILY 06/15/22 10/25/23 zinc sulfate 50 mg zinc (220 mg) 50 mg PO DAILY 06/15/22 10/25/23 capsule (Orazinc) milk thistle 500 mg capsule 1,000 mg PO DAILY 08/19/22 10/25/23 vitamin B complex (B 1 tablet PO DAILY 08/19/22 10/25/23 Complex-Vitamin B12 tablet) <Regi Cardona PA-C - Last Filed: 10/31/23 03:54> Allergies/Adverse Reactions: Allergies Allergy/AdvReac Type Severity Reaction Status Date / Time Sulfa (Sulfonamide Allergy Rash Verified 10/30/23 17:29 Antibiotics) meperidine [From Demerol] AdvReac Unknown Hallucinati Verified 10/30/23 17:29 ng <Regi Cardona PA-C - Last Filed: 10/31/23 03:54> Review of Systems Review of Systems: CONSTITUTIONAL: Denies fever, chills, or sweats. EYES: Denies visual changes, redness, or discharge. ENT: Denies rhinorrhea, congestion, sore throat, or otalgia. CARDIOVASCULAR: Denies chest pain, palpitations, or edema. RESPIRATORY: See HPI GASTROINTESTINAL: Denies abdominal pain, nausea, vomiting, or diarrhea. GENITOURINARY: Denies dysuria or hematuria. SKIN: Denies rash or itching. MUSCULOSKELETAL: Denies back pain, joint pain, or myalgia. NEUROLOGIC: Denies headache, numbness, or weakness. PSYCHIATRIC: Denies anxiety or depression. <Regi Cardona PA-C - Last Filed: 10/31/23 03:54> [facility] Past Medical History Medical History: Medical History Atrial fibrillation BMI 32.0-32.9,adult Colon cancer screening Decreased libido Elevated glucose Encounter to establish care Hemorrhoid HTN (hypertension) Hx of colonic polyp Hypersomnia Irregular heart rate Nocturia Rectal bleeding Snoring Urinary urgency <Regi Cardona PA-C - Last Filed: 10/31/23 03:54> Surgical History Surgical History: Surgical History History of kidney surgery <Regi Cardona PA-C - Last Filed: 10/31/23 03:54> Family History Family History: Family History Sibling Alcohol abuse Mother Asthma Hypertension Grandparent Cancer Cerebrovascular accident <Regi Cardona PA-C - Last Filed: 10/31/23 03:54> Social History Social History: Socia
[2023-10-30 21:50] LABS: Basophils Percent Auto 0.5 % (0.2-1.2); Eosinophils Percent Auto 0.4 % (0-4.4); Hematocrit 43.4 % (42.0-52.0); Hemoglobin 14.6 g/dL (14.0-18.0); Immature Granulocyte Absolute 0.05 K/mm3 (0.00-0.031); Immature Granulocyte Percent A 0.6 % (0-0.5); Lymphocytes Absolute Auto 0.62 K/mm3 (0.9-3.2); Lymphocytes Percent Auto 7.3 % (18.3-44.2); Mean Corpuscular HGB Conc 33.6 g/dl (32-36); Mean Corpuscular Hemoglobin 31.8 pg (26-34); Mean Corpuscular Volume 94.6 fl (80-100); Monocytes Absolute Auto 0.9 K/mm3 (0.1-0.6); Monocytes Percent Auto 10.6 % (2.6-8.5); Neutrophils Absolute Auto 6.8 K/mm3 (1.3-6.7); Neutrophils Percent Auto 80.6 % (45.5-73.1); Platelet Count Result 203 k/mm3 (150-375); Red Blood Count 4.59 M/mm3 (4.6-6.20); White Blood Count 8.5 K/mm3 (4.5-10.0)
[2023-10-30 21:56] LABS: Appearance Urine Clear (Clear); Bacteria Urine None Seen /hpf; Bilirubin Urine Negative (Negative); Blood Urine 1+ (Negative); Color Urine Yellow (Yellow); Glucose Urine UA Negative (Negative); Ketones Urine Trace mg/dL (Negative); Leukocyte Esterase Ur Negative LEU/UL (Negative); Nitrate Urine Negative (Negative); Non Pathogenic Casts 0-2; Protein Urine Negative (Negative); Specific Grav Ur 1.017 (1.001-1.035); Squamous Epithelial Cell Urine None Seen /hpf (Few); WBC Urine 0-5 /hpf (0-3)
[2023-10-30 21:59] LABS: Add Urine Microscopic? YES; INR 1.2; Prothrombin Time 15.6 Seconds (11.1-14.7)
[2023-10-30 22:00] LABS: Partial Thromboplastin Time 32.4 Seconds (22.3-36.8)
[2023-10-30 22:02] LABS: Alanine Aminotransferase 47 U/L (6-50); Albumin Level 4.8 g/dL (3.5-5.1); Alkaline Phosphatase 73 U/L (38-126); Anion Gap 8 mmol/L (4-12); Aspartate Amino Transferase 33 U/L (17-59); Blood Urea Nitrogen 20 mg/dL (9-20); Calcium 9.5 mg/dL (8.4-10.2); Carbon Dioxide 27 mmol/L (22-30); Chloride 101 mmol/L (98-107); Estimated CRCL calculation 67 ml/min; Estimated Glomerular Filt Rate > 60; Glucose 119 mg/dL (65-110); Lactic Acid Reflex 0.9 mmol/L (0.7-2.0); Magnesium 2.1 mg/dL (1.6-2.3); Potassium 4.3 mmol/L (3.4-5.0); Sodium 136 mmol/L (137-145)
[2023-10-30 22:13] LABS: NT Pro B Type Natriuretic Pept 620 pg/mL (19.9-100); Troponin I < 0.012 ng/mL (0.000-0.034)
[2023-10-30 23:19] LABS: Influenza A QL RT-PCR Negative (Negative); Influenza B QL RT-PCR Negative (Negative); RSV RNA, RT-PCR Negative (Negative); SARS-CoV-2 RNA PCR Positive (Negative)
--- NOTE | 2023-10-30 23:42 | PC.NURSE ---
care and report given to GEETA Sanchez. all questions answered.
[2023-10-31 01:55] LABS: Troponin I < 0.012 ng/mL (0.000-0.034)
[2023-10-31 02:09] VITALS: BP 146/90; PULSE 72; RESP 18; O2SAT 96
[2023-10-31] MEDS: ACETAMINOPHEN 500 MG TABLET 1000 MG PO (02:21)
== END 2023-10-31 02:20 | disposition home or self-care (01) ==
PROVIDERS: Emergency Medicine; Emergency Provider Physician Assistant; PCP Nurse Practitioner Family
DX: U07.1 COVID-19 (principal); R31.9 Hematuria, unspecified; I48.91 Unspecified atrial fibrillation; I10 Essential (primary) hypertension; I25.2 Old myocardial infarction; Z86.010 Personal history of colon polyps; Z87.891 Personal history of nicotine dependence; Z79.01 Long term (current) use of anticoagulants; I45.10 Unspecified right bundle-branch block; I44.0 Atrioventricular block, first degree
CPT/HCPCS: 36415; 71046; 80053; 81001; 83605; 83735; 83880; 84484; 85025; 85610; 85730; 87637; 93005; 99284; A9270

== ENCOUNTER 2023-11-11 06:08 | Emergency (ER) | payer MEDICARE, SELFPAY ==
[2023-11-11] VITALS (29 sets, daily range): BP systolic 118–200; BP diastolic 69–93; PULSE 50–72; RESP 11–20; TEMP 36.7; O2SAT 93–100
--- NOTE | ~2023-11-11 | XR_ITS ---
XR chest 1V portable DATE: 11/11/2023 07:26 INDICATION: Hypertension TECHNIQUE: Portable upright AP chest on November 11, 2023 at 0721 hours COMPARISON: PA and lateral chest on October 30, 2023 FINDINGS: Normal heart size. Aortic arch calcification and minimal aortic unfolding. No hilar or medi astinal enlargement is evident. Minimal infiltrate or atelectasis at the left lung base and otherwise no pulmonary consolidation, pleural effusion, pulmonary vascular congestion or pneumothorax. Osteopenia. IMPRESSION: Infiltrate or atelectasis in left lung base; otherwise no active cardiopulmonary disease or significant change since October 30, 2023 Reviewed, dictated and finalized at location A. IMPRESSION: Infiltrate or atelectasis in left lung base; otherwise no active ca rdiopulmonary disease or significant change since October 30, 2023
[2023-11-11 06:38] LABS: Basophils Percent Auto 0.7 % (0.2-1.2); Eosinophils Absolute Auto 0.1 K/mm3 (0-0.3); Eosinophils Percent Auto 1.6 % (0-4.4); Hemoglobin 14.4 g/dL (14.0-18.0); Immature Granulocyte Absolute 0.05 K/mm3 (0.00-0.031); Immature Granulocyte Percent A 0.8 % (0-0.5); Lymphocytes Absolute Auto 1.46 K/mm3 (0.9-3.2); Lymphocytes Percent Auto 23.8 % (18.3-44.2); Mean Corpuscular HGB Conc 33.5 g/dl (32-36); Mean Corpuscular Hemoglobin 32.1 pg (26-34); Mean Platelet Volume 9.4 fl (7.4-10.4); Monocytes Absolute Auto 0.7 K/mm3 (0.1-0.6); Monocytes Percent Auto 11.9 % (2.6-8.5); Neutrophils Absolute Auto 3.8 K/mm3 (1.3-6.7); Neutrophils Percent Auto 61.2 % (45.5-73.1); Platelet Count Result 326 k/mm3 (150-375); Red Blood Count 4.48 M/mm3 (4.6-6.20); Red Cell Distribution Width 12.5 % (11.5-14.5); White Blood Count 6.1 K/mm3 (4.5-10.0)
[2023-11-11 06:48] LABS: Alanine Aminotransferase 67 U/L (6-50); Albumin Level 4.3 g/dL (3.5-5.1); Alkaline Phosphatase 86 U/L (38-126); Anion Gap 8 mmol/L (4-12); Aspartate Amino Transferase 35 U/L (17-59); Bilirubin,Total 0.7 mg/dL (0.2-1.3); Blood Urea Nitrogen 21 mg/dL (9-20); Calcium 9.2 mg/dL (8.4-10.2); Carbon Dioxide 24 mmol/L (22-30); Chloride 106 mmol/L (98-107); Estimated CRCL calculation 73 ml/min; Estimated Glomerular Filt Rate > 60; Glucose 141 mg/dL (65-110); Potassium 4.7 mmol/L (3.4-5.0); Sodium 138 mmol/L (137-145)
--- NOTE | 2023-11-11 07:17 | ED.GENADULT ---
HPI - General Adult General Chief complaint: Recheck/Abnormal Lab/Rx Stated complaint: hypertensive emergency Time Seen by Provider: 11/11/23 06:55 History of Present Illness HPI narrative: Male history of hypertension atrial fibrillation presenting to the emergency department for evaluation after an episode of hypertension with associated nausea this morning. Patient states he normally wakes up about 3:00 a.m. and when he woke up at 3:00 a.m. this morning he stated he did not feel well, patient describes associated nausea but denies any chest pain shortness of breath or chest pressure. Patient states he normally takes his blood pressure medications that approximately 9:00 a.m. because he was feeling poorly intact his blood pressure and found it was elevated he did take his blood pressure medications. Upon arrival emergency department patient's blood pressure was elevated 200/93 and has since improved with no additional treatment in the emergency department. At time of evaluation patient states he feels tired but denies any chest pain, chest pressure or shortness of breath. Related Data Home Medications Medication Instructions Recorded Confirmed ascorbic acid (vitamin C) 500 mg 500 mg PO DAILY 06/15/22 10/25/23 tablet cholecalciferol (vitamin D3) 25 25 mcg PO DAILY 06/15/22 10/25/23 mcg (1,000 unit) capsule docusate sodium 100 mg capsule 100 mg PO PRN 06/15/22 10/25/23 magnesium oxide 500 mg capsule 400 mg PO DAILY 06/15/22 10/25/23 zinc sulfate 50 mg zinc (220 mg) 50 mg PO DAILY 06/15/22 10/25/23 capsule (Orazinc) milk thistle 500 mg capsule 1,000 mg PO DAILY 08/19/22 10/25/23 vitamin B complex (B 1 tablet PO DAILY 08/19/22 10/25/23 Complex-Vitamin B12 tablet) Allergies Allergy/AdvReac Type Severity Reaction Status Date / Time Sulfa (Sulfonamide Allergy Rash Verified 11/11/23 06:35 Antibiotics) meperidine [From Demerol] AdvReac Unknown Hallucinati Verified 11/11/23 06:35 ng Review of Systems Review of Systems: All systems reviewed & are unremarkable except as noted in HPI and below PMFSH Past Medical History Medical History Atrial fibrillation BMI 32.0-32.9,adult Colon cancer screening Decreased libido Elevated glucose Encounter to establish care Hemorrhoid HTN (hypertension) Hx of colonic polyp Hypersomnia Irregular heart rate Nocturia Rectal bleeding Snoring Urinary urgency Surgical History Surgical History History of kidney surgery Family History Family History Sibling Alcohol abuse Mother Asthma Hypertension Grandparent Cancer Cerebrovascular accident Social History Social History Social History: previous gambling history that had a social impact on his life. Smoking packs per day: 1 Smoking cigarettes per day: 20.0 Years smoked: 10 Smoking pack-years: 10.00 Smoking status: Former smoker Tobacco type: cigarettes Smokeless tobacco user: chewing tobacco Additional smoking assessment comments: quit in 84 Alcohol intake: former Substance use: never Substance use type: does not use Do You Feel Safe in your Home?: Yes Lack of Transportation: No Lack of Food: Never True Current Housing: I Have Housing Concerned About Future Housing: No Difficulty Paying Gas/Electric Bills: No Difficulty Paying for Meds: No Currently Unemployed: No Education: Trade/Vocational Certificate Difficulty w/ Childcare or Family Care: No Living arrangements: alone Additional occupation/education comments: 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 Spiritual care concerns: No Exam Narrative: APPEARANCE: Well appearing, no pain
== END 2023-11-11 09:15 | disposition home or self-care (01) ==
PROVIDERS: Emergency Medicine; Emergency Provider Emergency Medicine; PCP Nurse Practitioner Family
DX: I10 Essential (primary) hypertension (principal); I48.91 Unspecified atrial fibrillation; Z86.010 Personal history of colon polyps; Z87.891 Personal history of nicotine dependence; Z79.01 Long term (current) use of anticoagulants
CPT/HCPCS: 36415; 71045; 80053; 85025; 99283

== ENCOUNTER 2023-11-13 08:22 | Outpatient (CLI) | payer MEDICARE, SELFPAY ==
[2023-11-13 09:53] LABS: Hemoglobin A1C 5.9 % (<5.7)
[2023-11-13 09:53] LABS: Anion Gap 1 mmol/L (4-12); Blood Urea Nitrogen 17 mg/dL (9-20); Calcium 9.1 mg/dL (8.4-10.2); Carbon Dioxide 32 mmol/L (22-30); Chloride 102 mmol/L (98-107); Cholesterol 158 mg/dL (0-200); Estimated Glomerular Filt Rate > 60; Glucose 108 mg/dL (65-110); HDL Direct 36 mg/dL; Potassium 4.5 mmol/L (3.4-5.0); Sodium 135 mmol/L (137-145); Triglycerides 127 mg/dL (<150)
[2023-11-13 10:03] LABS: LDL Cholesterol Direct 94 mg/dL
== END 2023-11-13 08:23 | disposition home or self-care (01) ==
PROVIDERS: PCP Nurse Practitioner Family; Referring Provider Internal Medicine; Visit Provider Nurse Practitioner Family
DX: E78.1 Pure hyperglyceridemia (principal); I10 Essential (primary) hypertension; R73.09 Other abnormal glucose
CPT/HCPCS: 36415; 80048; 80061; 83036

== ENCOUNTER 2023-12-06 12:45 | Emergency (ER) | payer MEDICARE, SELFPAY ==
[2023-12-06 12:47] VITALS: BP 154/96; PULSE 91; RESP 18; TEMP 36.4; O2SAT 98
[2023-12-06 13:44] LABS: Basophils Percent Auto 0.4 % (0.2-1.2); Eosinophils Absolute Auto 0.1 K/mm3 (0-0.3); Eosinophils Percent Auto 1.7 % (0-4.4); Hemoglobin 14.2 g/dL (14.0-18.0); Immature Granulocyte Absolute 0.02 K/mm3 (0.00-0.031); Immature Granulocyte Percent A 0.3 % (0-0.5); Lymphocytes Absolute Auto 1.72 K/mm3 (0.9-3.2); Lymphocytes Percent Auto 24.6 % (18.3-44.2); Mean Corpuscular Hemoglobin 31.7 pg (26-34); Mean Platelet Volume 10.3 fl (7.4-10.4); Monocytes Absolute Auto 0.7 K/mm3 (0.1-0.6); Neutrophils Absolute Auto 4.4 K/mm3 (1.3-6.7); Platelet Count Result 252 k/mm3 (150-375); Red Blood Count 4.48 M/mm3 (4.6-6.20); Red Cell Distribution Width 13.2 % (11.5-14.5)
--- NOTE | 2023-12-06 14:08 | ED.SKABFB ---
HPI - Skin/Abscess/Foreign Bdy General Chief complaint: Skin/Abscess/Foreign Body Stated complaint: infected inscect bite right arm Time Seen by Provider: 12/06/23 13:20 History of Present Illness HPI narrative: 6-year-old male presents to the emergency room for an insect bite to his right arm. Patient states that the area is pruritic. Has not applied any medications to the area or taking any antihistamines. Patient is concerned that it is a tick bite. Patient did not witness a tick on his body. Related Data Home Medications Medication Instructions Recorded Confirmed ascorbic acid (vitamin C) 500 mg 500 mg PO DAILY 06/15/22 11/13/23 tablet cholecalciferol (vitamin D3) 25 25 mcg PO DAILY 06/15/22 11/13/23 mcg (1,000 unit) capsule docusate sodium 100 mg capsule 100 mg PO PRN 06/15/22 11/13/23 magnesium oxide 500 mg capsule 400 mg PO DAILY 06/15/22 11/13/23 zinc sulfate 50 mg zinc (220 mg) 50 mg PO DAILY 06/15/22 11/13/23 capsule (Orazinc) milk thistle 500 mg capsule 1,000 mg PO DAILY 08/19/22 11/13/23 vitamin B complex (B 1 tablet PO DAILY 08/19/22 11/13/23 Complex-Vitamin B12 tablet) Allergies Allergy/AdvReac Type Severity Reaction Status Date / Time Sulfa (Sulfonamide Allergy Rash Verified 12/06/23 12:49 Antibiotics) meperidine [From Demerol] AdvReac Unknown Hallucinati Verified 12/06/23 12:49 ng Review of Systems Review of Systems: ROS unremarkable as otherwise stated in HPI [facility] Past Medical History Medical History Anemia Atrial fibrillation BMI 32.0-32.9,adult Colon cancer screening Decreased libido Elevated glucose Encounter to establish care Hemorrhoid HTN (hypertension) Hx of colonic polyp Hypersomnia Irregular heart rate Microscopic hematuria Nocturia Pre-diabetes Rectal bleeding Snoring Urinary urgency Surgical History Surgical History History of kidney surgery Family History Family History Sibling Alcohol abuse Mother Asthma Hypertension Grandparent Cancer Cerebrovascular accident Social History Social History Social History: previous gambling history that had a social impact on his life. Smoking packs per day: 1 Smoking cigarettes per day: 20.0 Years smoked: 10 Smoking pack-years: 10.00 Smoking status: Former smoker Tobacco type: cigarettes Smokeless tobacco user: chewing tobacco Additional smoking assessment comments: quit in 84 Alcohol intake: former Substance use: never Substance use type: does not use Do You Feel Safe in your Home?: Yes Lack of Transportation: No Lack of Food: Never True Current Housing: I Have Housing Concerned About Future Housing: No Difficulty Paying Gas/Electric Bills: No Difficulty Paying for Meds: No Currently Unemployed: No Education: Trade/Vocational Certificate Difficulty w/ Childcare or Family Care: No Living arrangements: alone Additional occupation/education comments: 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 Spiritual care concerns: No Exam Narrative: GENERAL: Well-appearing, well-nourished, no physical limitations, and in no acute distress. HEAD: Normocephalic, atraumatic. EYES: Conjunctivae normal, PERRLA and EOMI. CHEST: Clear to auscultation. No respiratory distress. No wheezes rales or rhonchi. HEART: Regular rate and rhythm. No murmur heard. Normal peripheral pulses. BACK: No CVA tenderness; No cervical/thoracic/lumbar tenderness, step-offs, bony abnormality; FROM EXTREMITIES: Normal range of motion. No edema. No clubbing or cyanosis SKIN: right arm: 2cmareaof erythema and swelling to the antecubital with a centralized punctum jamee NEURO: N
[2023-12-06 14:15] VITALS: BP 137/83; PULSE 71; RESP 16; TEMP 36.9; O2SAT 100
== END 2023-12-06 14:15 | disposition home or self-care (01) ==
PROVIDERS: Emergency Provider Nurse Practitioner Family; PCP Nurse Practitioner Family
DX: S50.361A Insect bite (nonvenomous) of right elbow, initial encounter (principal); I48.91 Unspecified atrial fibrillation; I10 Essential (primary) hypertension; R73.03 Prediabetes; Z86.2 Personal history of diseases of the blood and blood-forming organs and certain disorders involving the immune mechanism; Z86.010 Personal history of colon polyps; Z87.891 Personal history of nicotine dependence; W57.XXXA Bitten or stung by nonvenomous insect and other nonvenomous arthropods, initial encounter
CPT/HCPCS: 36415; 85025; 99283

== ENCOUNTER 2023-12-21 08:10 | Outpatient (CLI) | payer MEDICARE, SELFPAY ==
--- NOTE | ~2023-12-21 | CT_ITS ---
EXAMINATION: CT abdomen pelvis wo/w con DATE: 12/21/2023 08:54 INDICATION: Hematuria. TECHNIQUE: Computed tomography (CT) of the abdomen and pelvis was performed without and with intraven ous contrast using a total of 130 mL Omnipaque-350 intravenous contrast with a double-bolus technique for simultaneous opacification of the renal parenchyma and renal collecting system. Automated exposu re control and iterative reconstruction technique were employed. The dose-length product was 2443.29 mGy-cm. COMPARISON: CT abdomen and pelvis 10/26/2023 FINDINGS: The visualized portions of the lung bases demonstrate mild atelectasis. No pleural effusion. There is left atrial enlargement of the heart. There are coronary artery calcifications. No pericardial effus ion. The liver, gallbladder, spleen, pancreas, adrenal glands, are normal. There are cysts in the kid neys measuring up to 1.6 cm on the right. There is mild atrophy of left kidney with papillary necrosi s. There is a 1 mm stone in left kidney. Right ureter is well opacified and is normal. Left ureter is not well opacified in its middle and distal thirds. There is mild left hydronephrosis. The bladder i s distended. There are no dilated loops of bowel. The appendix is normal. There are no pathologically enlarged lymph nodes. There is no free intraperitoneal fluid. There are bilateral inguinal hernias c ontaining fat. There is a benign bone island in right ilium. There is moderate thoracic spondylosis a nd mild lumbar spondylosis. There is a hemangioma in T8 vertebral body. IMPRESSION: 1. 1 mm nonobstructing left kidney stone. 2. Mild left hydronephrosis. Mild left kidney atrophy. 3. Distended bladder. Reviewed, dictated and finalized at location A.
[2023-12-21 08:41] LABS: Estimated Glomerular Filt Rate 55
== END 2023-12-21 08:11 | disposition home or self-care (01) ==
LOC: ANHIMG 08:10
PROVIDERS: PCP Nurse Practitioner Family; Visit Provider Physician Assistant
DX: R31.9 Hematuria, unspecified (principal); N20.0 Calculus of kidney; N26.1 Atrophy of kidney (terminal); N32.89 Other specified disorders of bladder
CPT/HCPCS: 74178; Q9967

== ENCOUNTER 2024-01-15 07:16 | Outpatient (CLI) | payer MEDICARE, SELFPAY ==
--- NOTE | ~2024-01-15 | NM_ITS ---
EXAMINATION: JESUSITA shea renal scan DATE: 01/15/2024 08:50 INDICATION: Left hydronephrosis. TECHNIQUE: 7.9 mCi Tc-99m MAG3 was administered IV. 40 mg furosemide was administered IV immediately afterward. The patient was scanned in the supine position. A posterior abdominal radionuclide angiog zonia was obtained. A subsequent time course of static images of the kidneys, ureters, and bladder was obtained. COMPARISON: CT abdomen pelvis 12/21/2023 FINDINGS: The posterior abdominal radionuclide angiogram and sequential static images show normal siz e, position, and morphology of the kidneys. Peak renal parenchymal uptake was 3 min in right kidney a nd 6 min in left kidney (normal peak 3-5 minutes). The relative early renal uptake was 49% on the ri ght and 51% on the left (<40% is abnormal). No abnormalities of the ureters or bladder are seen. T1/2 for clearance of activity from the right kidney and proximal collecting system was 27 minutes. T1/2 for clearance of activity from the left kidney and proximal collecting system was 43 minutes. IMPRESSION: 1. Symmetric kidney function. 2. Delayed contrast clearance from both kidneys. This result may be secondary to supine positioning, dehydration, poor renal function, bilateral ureteral obstruction, or bladder distention. Reviewed, dictated and finalized at location A. IMPRESSION: 1. Symmetric kidney function. 2. Delayed contrast clearance from both kidneys. This result may be secondary to supine positioning, dehydration, poor renal function, bilateral ureteral obs truction, or bladder distention.
== END 2024-01-15 07:17 | disposition home or self-care (01) ==
PROVIDERS: PCP Nurse Practitioner Family; Visit Provider Physician Assistant
DX: N13.30 Unspecified hydronephrosis (principal)
CPT/HCPCS: 78708; A9562; J1940

== ENCOUNTER 2024-02-27 02:07 | Day surgery (SDC) | payer MEDICARE, SELFPAY ==
[2024-02-12 16:28] VITALS: BMI 31.2
--- NOTE | 2024-02-13 10:23 | PC.NURSE ---
Spoke with PATIENT_ regarding medication _ELIQUIS_. Pt. verbalizes understanding that the last dose of _ELIQUIS_ is to be taken on _02/24/2024_ and the Endoscopist will instruct them when to restart after the procedure.
[2024-02-27 08:30] VITALS: BP 163/77; PULSE 66; RESP 18; TEMP 36.1; O2SAT 100; BMI 30.7
[2024-02-27] MEDS: LACTATED RINGERS 1,000 ML 150 ML IV CONT (08:55)
--- NOTE | 2024-02-27 09:17 | WPDANESEPPF ---
Anes - Initial Pre Proc Eval Procedure: Operation Date: 02/27/24 09:30 Proposed Procedures p Screening Colonoscopy - Ish Yepez MD Date/Time: 02/27/24 09:17 Surgeon: Ish Yepez MD Pre Op Diagnosis: neoplasm screening Patient Data Age: 68 Gender: M Height: 1.75 m Weight: 94.2 kg Last Vital Signs Temp 97.0 F L 02/27/24 08:30 Pulse 66 02/27/24 08:30 Resp 18 02/27/24 08:30 BP 163/77 H 02/27/24 08:30 Pulse Ox 100 02/27/24 08:30 O2 Del Method Room Air 02/27/24 08:30 Allergies Allergy/AdvReac Type Severity Reaction Status Date / Time Sulfa (Sulfonamide Allergy Rash Verified 02/27/24 08:38 Antibiotics) meperidine [From Demerol] AdvReac Unknown Hallucinati Verified 02/27/24 08:38 ng Home Medications Medication Instructions Recorded Confirmed Type ascorbic acid (vitamin C) 500 mg 500 mg PO DAILY 06/15/22 02/27/24 History tablet docusate sodium 100 mg capsule 100 mg PO BID 06/15/22 02/27/24 History zinc sulfate 50 mg zinc (220 mg) 50 mg PO DAILY 06/15/22 02/27/24 History capsule (Orazinc) milk thistle 500 mg capsule 1,000 mg PO DAILY 08/19/22 02/27/24 History apixaban 5 mg tablet (Eliquis) 5 mg PO BID afib #60 tabs 10/09/23 02/27/24 Rx sotalol 80 mg tablet 40 mg PO BID #30 tabs 10/27/23 02/27/24 Rx spironolactone 25 mg tablet 12.5 mg PO DAILY #15 tabs 10/27/23 02/27/24 Rx (Aldactone) Adult Probiotic 1 cap PO DAILY 02/12/24 02/27/24 History fexofenadine 180 mg tablet 180 mg PO DAILY 02/12/24 02/27/24 History finasteride 5 mg tablet 5 mg PO DAILY 02/12/24 02/27/24 History magnesium oxide 400 mg PO DAILY 02/12/24 02/27/24 History mecobalamin (vitamin B12) 1,000 1,000 mcg PO DAILY 02/12/24 02/27/24 History mcg disintegrating tablet,sublingual Patient hx anesthesia problems: none Family hx anesthesia problems: none Results Review: All pre-operative results and documents have been reviewed as part of the pre-operative evaluation. [facility] Past Medical History Medical History Anemia Atrial fibrillation BMI 32.0-32.9,adult Colon cancer screening Decreased libido Elevated glucose Encounter to establish care Hemorrhoid HTN (hypertension) Hx of colonic polyp Hypersomnia Irregular heart rate Microscopic hematuria Nocturia Pre-diabetes Rectal bleeding Snoring Urinary urgency Surgical History Surgical History History of kidney surgery Family History Family History Sibling Alcohol abuse Mother Asthma Hypertension Grandparent Cancer Cerebrovascular accident Social History Social History Social History: previous gambling history that had a social impact on his life. Smoking packs per day: 1 Smoking cigarettes per day: 20.0 Years smoked: 10 Smoking pack-years: 10.00 Smoking status: Former smoker Tobacco type: cigarettes Smokeless tobacco user: chewing tobacco Additional smoking assessment comments: quit in Alcohol intake: current Substance use: former Substance use type: other Other substance usage details: DRUGS Do You Feel Safe in your Home?: Yes Lack of Transportation: No Lack of Food: Never True Current Housing: I Have Housing Concerned About Future Housing: No Difficulty Paying Gas/Electric Bills: No Difficulty Paying for Meds: No Currently Unemployed: No Education: Trade/Vocational Certificate Difficulty w/ Childcare or Family Care: No Living arrangements: alone Additional occupation/education comments: 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 Spiritual care concerns: No Anes - Eval Final PreProcedure Day of Procedure 02/14
--- NOTE | 2024-02-27 09:32 | PM.HPGS ---
History of Present Illness History of Present Illness Consent: Risks, benefits, and alternatives have been discussed and questions answered. Patient agrees to proceed with procedure. Chief complaint: neoplasm screening Narrative: David Stewart III is a 68 year old male here for screening colonoscopy, last one in 1991 Review of Systems Review of Systems: All systems reviewed & are unremarkable except as noted in HPI and below PMFSH Past Medical History Medical History Anemia Atrial fibrillation BMI 32.0-32.9,adult Colon cancer screening Decreased libido Elevated glucose Encounter to establish care Hemorrhoid HTN (hypertension) Hx of colonic polyp Hypersomnia Irregular heart rate Microscopic hematuria Nocturia Pre-diabetes Rectal bleeding Snoring Urinary urgency Surgical History Surgical History History of kidney surgery Family History Family History Sibling Alcohol abuse Mother Asthma Hypertension Grandparent Cancer Cerebrovascular accident Social History Social History Social History: previous gambling history that had a social impact on his life. Smoking packs per day: 1 Smoking cigarettes per day: 20.0 Years smoked: 10 Smoking pack-years: 10.00 Smoking status: Former smoker Tobacco type: cigarettes Smokeless tobacco user: chewing tobacco Additional smoking assessment comments: quit in Alcohol intake: current Substance use: former Substance use type: other Other substance usage details: DRUGS Do You Feel Safe in your Home?: Yes Lack of Transportation: No Lack of Food: Never True Current Housing: I Have Housing Concerned About Future Housing: No Difficulty Paying Gas/Electric Bills: No Difficulty Paying for Meds: No Currently Unemployed: No Education: Trade/Vocational Certificate Difficulty w/ Childcare or Family Care: No Living arrangements: alone Additional occupation/education comments: 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 Spiritual care concerns: No Meds Home Medications and Allergies Home Medications Medication Instructions Recorded Confirmed Type ascorbic acid (vitamin C) 500 mg 500 mg PO DAILY 06/15/22 02/27/24 History tablet docusate sodium 100 mg capsule 100 mg PO BID 06/15/22 02/27/24 History zinc sulfate 50 mg zinc (220 mg) 50 mg PO DAILY 06/15/22 02/27/24 History capsule (Orazinc) milk thistle 500 mg capsule 1,000 mg PO DAILY 08/19/22 02/27/24 History apixaban 5 mg tablet (Eliquis) 5 mg PO BID afib #60 tabs 10/09/23 02/27/24 Rx sotalol 80 mg tablet 40 mg PO BID #30 tabs 10/27/23 02/27/24 Rx spironolactone 25 mg tablet 12.5 mg PO DAILY #15 tabs 10/27/23 02/27/24 Rx (Aldactone) Adult Probiotic 1 cap PO DAILY 02/12/24 02/27/24 History fexofenadine 180 mg tablet 180 mg PO DAILY 02/12/24 02/27/24 History finasteride 5 mg tablet 5 mg PO DAILY 02/12/24 02/27/24 History magnesium oxide 400 mg PO DAILY 02/12/24 02/27/24 History mecobalamin (vitamin B12) 1,000 1,000 mcg PO DAILY 02/12/24 02/27/24 History mcg disintegrating tablet,sublingual Allergies Allergy/AdvReac Type Severity Reaction Status Date / Time Sulfa (Sulfonamide Allergy Rash Verified 02/27/24 08:38 Antibiotics) meperidine [From Demerol] AdvReac Unknown Hallucinati Verified 02/27/24 08:38 ng Vital Signs Vital Signs - 24 hr 02/27/24 08:30 Temperature 97.0 F L Pulse Rate 66 Respiratory Rate 18 Blood Pressure 163/77 H Pulse Oximetry 100 Oxygen Delivery Room Air Exam Const: General: comfortable and no acute distress HENMT: Face/Nose/Sinus: Normal nares present Eyes: General: appear
[2024-02-27 09:57] VITALS: BP 112/59; PULSE 58; RESP 16; O2SAT 100
[2024-02-27 10:06] VITALS: BP 102/58; PULSE 57; RESP 17; O2SAT 100
[2024-02-27 10:26] VITALS: BP 117/67; PULSE 57; RESP 18; O2SAT 100
== END 2024-02-27 10:26 | disposition home or self-care (01) ==
PROVIDERS: PCP Nurse Practitioner Family; Visit Provider Internal Medicine Gastroenterology
PROC: 0DJD8ZZ Inspection of Lower Intestinal Tract, Via Natural or Artificial Opening Endoscopic (ICD-10-PCS; CPT 45378; principal; 2024-02-27 09:30)
DX: Z12.11 Encounter for screening for malignant neoplasm of colon (principal); D12.0 Benign neoplasm of cecum; D12.3 Benign neoplasm of transverse colon; K64.8 Other hemorrhoids; I10 Essential (primary) hypertension; I48.91 Unspecified atrial fibrillation; Z87.891 Personal history of nicotine dependence; Z79.01 Long term (current) use of anticoagulants; E66.9 Obesity, unspecified; Z68.30 Body mass index [BMI] 30.0-30.9, adult
CPT/HCPCS: 45385; 88305; J2704; J7120

== ENCOUNTER 2024-03-20 07:22 | Outpatient (CLI) | payer MEDICARE, SELFPAY ==
[2024-03-20 08:17] LABS: Alanine Aminotransferase 33 U/L (6-50); Albumin Level 3.9 g/dL (3.5-5.1); Alkaline Phosphatase 57 U/L (38-126); Anion Gap 7 mmol/L (4-12); Aspartate Amino Transferase 32 U/L (17-59); Bilirubin,Total 0.6 mg/dL (0.2-1.3); Blood Urea Nitrogen 17 mg/dL (9-20); Calcium 8.8 mg/dL (8.4-10.2); Carbon Dioxide 31 mmol/L (22-30); Chloride 99 mmol/L (98-107); Estimated Glomerular Filt Rate > 60; Glucose 100 mg/dL (65-110); Potassium 4.3 mmol/L (3.4-5.0); Sodium 137 mmol/L (137-145)
[2024-03-20 09:00] LABS: Hemoglobin A1C 5.6 % (<5.7)
== END 2024-03-20 07:23 | disposition home or self-care (01) ==
PROVIDERS: PCP Nurse Practitioner Family; Visit Provider Nurse Practitioner Family
DX: R73.03 Prediabetes (principal); I10 Essential (primary) hypertension
CPT/HCPCS: 36415; 80048; 80076; 83036

== ENCOUNTER 2024-03-26 08:17 | Outpatient (CLI) | payer MEDICARE, SELFPAY ==
--- NOTE | ~2024-03-26 | NM_ITS ---
EXAMINATION: JESUSITA shea renal scan DATE: 03/26/2024 09:29 INDICATION: Left hydronephrosis TECHNIQUE: 8.2 mCi Tc-99m MAG3 was administered IV. 40 mg furosemide was administered IV immediately afterward. The patient was scanned in the supine position. A posterior abdominal radionuclide angiog zonia was obtained. A subsequent time course of static images of the kidneys, ureters, and bladder was obtained. COMPARISON: 01/15/2024 FINDINGS: The posterior abdominal radionuclide angiogram and sequential static images show normal size, positio n, and morphology of the kidneys. Peak renal parenchymal uptake was 4.5 min in left kidney and 5.5 mi n in right kidney (normal peak 3-5 minutes). The relative early renal uptake was 52% on the left and 40% on the right (<40% is abnormal). No abnormalities of the ureters or bladder are seen. T1/2 for clearance of activity from the left kidney and proximal collecting system was 56 minutes. T1/2 for clearance of activity from the right kidney and proximal collecting system was 25 minutes. Notes on interpretation: T1/2 <10 minutes is normal, 10-15 minutes is low grade obstruction of questi onable clinical significance, 15-20 minutes is partial obstruction that is likely clinically signific ant, >20 minutes is high grade obstruction. Note that false positives may be seen with supine positio radha, dehydration, severely dilated nonobstructed kidney, atonic collecting system, poor renal functi on, and chronic furosemide use. IMPRESSION: 1. Symmetric kidney function. 2. No significant change in the mild asymmetric delayed activity clearance from both kidneys but wit hout significant hydronephrosis evident on the scintigraphic images which could be due to poor renal function, dehydration, supine positioning, obstruction or some combination thereof. Reviewed, dictated and finalized at location B. IMPRESSION: 1. Symmetric kidney function. 2. No significant change in the mild asymmetric delayed activity clearance fro m both kidneys but without significant hydronephrosis evident on the scintigrap hic images which could be due to poor renal function, dehydration, supine posit ioning, obstruction or some combination thereof.
== END 2024-03-26 08:18 | disposition home or self-care (01) ==
LOC: ANHIMG 08:21
PROVIDERS: PCP Nurse Practitioner Family; Visit Provider Physician Assistant
DX: N13.30 Unspecified hydronephrosis (principal)
CPT/HCPCS: 78708; A9562; J1940

== ENCOUNTER 2024-05-21 06:55 | Outpatient (CLI) | payer MEDICARE, SELFPAY ==
[2024-05-21 08:04] LABS: Alanine Aminotransferase 33 U/L (6-50); Alkaline Phosphatase 63 U/L (38-126); Aspartate Amino Transferase 32 U/L (17-59); Bilirubin,Total 0.8 mg/dL (0.2-1.3)
== END 2024-05-21 06:56 | disposition home or self-care (01) ==
LOC: ANHLAB 06:56
PROVIDERS: PCP Nurse Practitioner Family; Visit Provider Nurse Practitioner Family
DX: R74.01 Elevation of levels of liver transaminase levels (principal)
CPT/HCPCS: 36415; 80076

== ENCOUNTER 2024-12-02 11:17 | Outpatient (CLI) | payer MEDICARE, SELFPAY ==
--- OUTSIDE RECORDS SUMMARY | 2024-12-02 11:54 | XMS_ITS | Clinical Summary ---
Author Organization [facility] [address] Address [address] [place] [address] Care Team Providers Care Director Workforce Management Name Role Phone Devyn Miller MD Primary Care Provider [phone] Allergies Active Allergy Reactions Criticality Noted Date Comments Meperidine Hallucinations,Other (See comments) Medium 07/20/2022 Aggressive behavior Sulfa (Sulfonamide Antibiotics) Hives Medium 02/21/2023 Medications ascorbic acid (VITAMIN C) 500 mg tablet,chewableI ndications:Atria l fibrillation, unspecified type (HCC) Active cholecalciferol (VITAMIN D-3) 25 mcg (1,000 unit) tabletIndication s:Atrial fibrillation, unspecified type (HCC) Take 1 tablet (1,000 Units total) by mouth daily Active magnesium oxide 400 mg magnesium capsuleIndicatio ns:Atrial fibrillation, unspecified type (HCC) Take 500 mg by mouth 2 (two) times a day Active zinc 50 mg tabletIndication s:Atrial fibrillation, unspecified type (HCC) Take by mouth Active Eliquis 5 mg tabletIndication s:Atrial fibrillation, unspecified type (HCC) 2 (two) times a day 07/16/2022 Active cyanocobalamin (Vitamin B-12) 2,000 mcg tablet Take 1 tablet (2,000 mcg total) by mouth daily Active spironolactone (ALDACTONE) 25 mg tabletIndication s:Diastolic dysfunction without heart failure Take 0.5 tablets (12.5 mg total) by mouth daily 45 tablet 3 11/20/2023 Active linaclotide (LINZESS ORAL) Take by mouth Active finasteride (PROSCAR) 5 mg tablet Take 1 tablet (5 mg total) by mouth daily Active sotaloL (BETAPACE) 80 mg tabletIndication s:Typical atrial flutter (HCC),Atrial fibrillation, unspecified type (HCC) TAKE 1/2 TABLET(40 MG) BY MOUTH TWICE DAILY 90 tablet 2 10/08/2024 Active Active Problems Problem Noted Date Diagnosed Date A-fib 04/10/2023 Atrial flutter 12/06/2022 Atrial fibrillation 07/20/2022 Surgical History Surgery Date Site/Laterality Comments KIDNEY SURGERY 07/17/1975 - 07/16/1976 ABDOMINAL SURGERY kidney ureter obstruction Medical History Medical History Date Comments Atrial fibrillation (HCC) Nocturia Snoring Hypersomnia Hypertension marginal thru adulthoood Sleep apnea to be evaluated in future study Family History Medical History Relation Name Comments Alcohol abuse Father David moyacresencio hubbard. Atrial fibrillation Father David chinbrenda constantino Dementia Father David chinbrenda constantino Memory loss Father David chinbrenda hubbard. Heart attack Maternal Grandfather Mr. Lara Stroke Maternal Grandmother dary lara Asthma Mother Rebeca Stewart COPD Mother Rebeca Stewart Heart disease Mother Rebeca Stewart Heart failure Mother Rebeca Stewart Hypertension Mother Rebeca Stewart Kidney disease Mother's Sister Radha [place] Cancer Paternal Grandmother jagjit madden Hypertension Son david Relation Name Status Comments Father David stewart jr. Maternal Grandfather Mr. Lara Maternal Grandmother dary lara Mother Rebeca Stewart Mother's Sister Radha [place] Paternal Grandmother jagjit garciaw Son david Social History Tobacco Use Types Packs/Day Years Used Date Smoking Tobacco: Former Cigarettes 1 10 0 07/17/1973 - 07/17/1983 Smokeless Tobacco: Former Snuff Quit: 07/17/1983 Personal Safety Answer Date Recorded Have you ever been in or are you currently in a harmful physical or emotional relationship or is someone making you feel afraid or unsafe? 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 Gender Identity Not on file Sexual Orientation Not on file Obstetrics History Last Filed Vital Signs Vital Sign Reading Time Taken Comments Blood Pressure 120/64 07/30/2024 9:38 AM SANDER PORTABLE MACHINE Pulse 51 07/30/2024 9:38 AM SANDER PORTABLE MACHINE Temperature - - Respiratory Rate 16 03/28/2023 9:21 AM CDT Oxygen Saturation 96% 07/30/2024 9:38 AM SANDER PORTABLE MACHINE Inhaled Oxygen Concentration - - Weight 99.2 kg (218 lb 12.8 oz) 07/30/2024 9:38 AM SANDER PORTABLE MACHINE Height 175.3 cm (5' 9 ) 07/30/2024 9:38 AM SANDER PORTABLE MACHINE Body Mass Index 32.31 07/30/2024 9:38 AM SANDER PORTABLE MACHINE Plan of Treatment Health Maintenance Due Date Last Done Comments Colon Cancer Screening-Colonoscopy 1955 Depression Screening 1955 Fall Risk Assessment 1955 Hepatitis C Screening 1955 Prostate Cancer Screening-PSA 1955 DTaP/Tdap/Td Vaccine (1 - Tdap) 10/13/1966 Hepatitis B Screening 10/13/1973 Pneumococcal vaccine 65+ (1 of 1 - PCV) 10/13/2005 Zoster Vaccine (1 of 2) 10/13/2005 Abdominal Aortic Aneurysm (A AA) Screen 10/13/2020 Well Visit 65+ 10/13/2020 Covid-19 Vaccine ( - season) 2024 07/27/2021, 01/05/2021, 12/08/2020 Influenza Vaccine (Season Ended) [address] AYALA [address] [place] [id number] [facility] MEDIC[facility] ADVANT[facility]ICARE Address: [id number] [place] [address] [facility] MEDICARE ADVANTAGE [facility] MEDICARE Address: [address] [address] Care Teams Director Workforce Management Relationship Specialty Start Date End Date Devyn Miller MD [address] [facility] [address] [place] [address] PCP - General Family Medicine 06/22/22
--- OUTSIDE RECORDS SUMMARY | 2024-12-02 11:54 | XMS_ITS | Referral Summary ---
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 Gender Identity Not on file Sexual Orientation Not on file Last Filed Vital Signs Vital Sign Reading Time Taken Comments Blood Pressure 120/64 07/30/2024 9:38 AM WIRELESS MANAGER Pulse 51 07/30/2024 9:38 AM WIRELESS MANAGER Temperature - - Respiratory Rate 16 03/28/2023 9:21 AM CDT Oxygen Saturation 96% 07/30/2024 9:38 AM WIRELESS MANAGER Inhaled Oxygen Concentration - - Weight 99.2 kg (218 lb 12.8 oz) 07/30/2024 9:38 AM WIRELESS MANAGER Height 175.3 cm (5' 9 ) 07/30/2024 9:38 AM WIRELESS MANAGER Body Mass Index 32.31 07/30/2024 9:38 AM WIRELESS MANAGER Plan of Treatment Not on file Insurance [facility] MEDICARE ADVANTAGE [place] [id number] [facility] MEDICARE ADVANTAGE Care Teams Laundry Routeman Relationship Specialty Start Date End Date Devyn Miller MD [address] [address] PCP - General Family Medicine 06/22/22
--- OUTSIDE RECORDS SUMMARY | 2024-12-02 11:54 | XMS_ITS | Clinical Summary ---
Author Organization [facility] Address [address] [place] [address] Care Team Providers Care Kiln Puller Name Role Phone Marvel Jeong MD Unavailable [phone] Marvel Jeong MD Primary Care Provider [phone] Allergies Active Allergy Reactions Criticality Noted Date Comments Meperidine Other (see comment) 02/21/2023 Aggressive behavior Sulfa Antibiotics Hives 02/21/2023 Medications sotalol (BETAPACE) 80 MG tablet Take 1 tablet (80 mg total) by mouth 2 (two) times daily. Active magnesium oxide (MAG-OX) 250 MG tablet Take 1 tablet (250 mg total) by mouth daily. Active docusate sodium (COLACE) 100 MG capsule Take 1 capsule (100 mg total) by mouth 2 (two) times daily. Active Cyanocobalamin (B-12) 2000 MCG Tab Take 1 tablet by mouth daily. Active HYDROcodone-darnell taminophen (NORCO) 5-325 MG tabletIndicatio ns:Acute Pain < 7 Day Supply Take 1 tablet by mouth every 4 (four) hours as needed. Indications: Acute Pain < 7 Day Supply 20 tablet 02/24/2023 Active Active Problems No known active problems Social History Tobacco Use Types Packs/Day Years Used Date Smoking Tobacco: Former Cigarettes 1 - 1983 Smokeless Tobacco: Former Chew Quit: 1983 Alcohol Use Standard Drinks/Week Comments Not Currently 0 (1 standard drink = 0.6 oz pur e alcohol) Sex and Gender Information Value Date Recorded Sex Assigned at Not on file Legal Sex Male 12:54 PM CDT Gender Identity Not on file Sexual Orientation Not on file Last Filed Vital Signs Vital Sign Reading Time Taken Comments Blood Pressure 139/99 02/24/2023 12:55 PM CDT Pulse 87 02/24/2023 12:55 PM CDT Temperature 36.7 C (98.1 F) 02/24/2023 12:55 PM CDT Respiratory Rate 18 02/24/2023 12:5 5 PM CDT Oxygen Saturation 97% 02/24/2023 12: 55 PM CDT Inhaled Oxygen Concentration - - Weight 101.6 kg (223 lb 15.8 oz) 02/24/2023 7:00 AM CDT Height 175.3 cm (5' 9 ) 02/24/2023 7:00 AM CDT Body Mass Index 33.08 02/24/2023 7:00 AM CDT Plan of Treatment Health Maintenance Due Date Last Done Comments Colorectal Cancer Screening Colonoscopy (10 Years) 1955 Hepatitis C 10/13/1973 DTaP, Tdap and Td Vaccines ( 1 - Tdap) 10/13/1974 Pneumococcal Vaccine: 50+ Years (1 of 1 - PCV) 10/13/2005 Zoster Vaccines (1 of 2) 10/13/2005 COVID-19 Vaccine (4 - 2023-2 5 season) 2024 07/27/2021, 01/05/2021, 12/08/2020 RSV Immunization or 60+ Years (1 - 1-dose 75+ series) 10/13/2030 Meningococcal B Vaccine Aged Out No l onger eligible based on patient's age to complete this topic Meningococcal Vaccine Aged Out No chelsea najma eligible based on patient's age to complete this topic RSV Immunizations Under 20 Months Aged Out No longer eligible b ased on patient's age to complete this topic Insurance [facility] Care Teams Kiln Puller Relationship Specialty Start Date End Date Marvel Jeong MD [address] [address] PCP - General CARDIOVASCULAR DISEASE 02/23/23 Marvel Jeong MD [address] [address] CARDIOVASCULAR DISEASE 02/21/23
[2024-12-02 11:55] LABS: Basophils Percent Auto 0.6 % (0.2-1.2); Eosinophils Absolute Auto 0.1 K/mm3 (0-0.3); Eosinophils Percent Auto 1.9 % (0-4.4); Hematocrit 40.4 % (42.0-52.0); Hemoglobin 13.5 g/dL (14.0-18.0); Immature Granulocyte Absolute 0.02 K/mm3 (0.00-0.031); Immature Granulocyte Percent A 0.3 % (0-0.5); Lymphocytes Absolute Auto 2.09 K/mm3 (0.9-3.2); Lymphocytes Percent Auto 33.9 % (18.3-44.2); Mean Corpuscular HGB Conc 33.4 g/dl (32-36); Mean Corpuscular Hemoglobin 32.3 pg (26-34); Mean Corpuscular Volume 96.7 fl (80-100); Mean Platelet Volume 9.9 fl (7.4-10.4); Monocytes Absolute Auto 0.7 K/mm3 (0.1-0.6); Monocytes Percent Auto 10.6 % (2.6-8.5); Neutrophils Absolute Auto 3.2 K/mm3 (1.3-6.7); Neutrophils Percent Auto 52.7 % (45.5-73.1); Platelet Count Result 236 k/mm3 (150-375); Red Blood Count 4.18 M/mm3 (4.6-6.20); Red Cell Distribution Width 13.1 % (11.5-14.5); White Blood Count 6.2 K/mm3 (4.5-10.0)
[2024-12-02 12:06] LABS: Hemoglobin A1C 5.6 % (<5.7)
[2024-12-02 12:07] LABS: Alanine Aminotransferase 35 U/L (6-50); Albumin Level 4.3 g/dL (3.5-5.1); Alkaline Phosphatase 54 U/L (38-126); Anion Gap 6 mmol/L (4-12); Aspartate Amino Transferase 40 U/L (17-59); Bilirubin,Total 0.9 mg/dL (0.2-1.3); Blood Urea Nitrogen 21 mg/dL (9-20); Calcium 8.8 mg/dL (8.4-10.2); Carbon Dioxide 28 mmol/L (22-30); Chloride 103 mmol/L (98-107); Cholesterol 170 mg/dL (0-200); Estimated Glomerular Filt Rate > 60; Glucose 97 mg/dL (65-110); HDL Direct 52 mg/dL; Potassium 4.7 mmol/L (3.4-5.0); Sodium 137 mmol/L (137-145); Triglycerides 78 mg/dL (<150)
[2024-12-02 12:18] LABS: LDL Cholesterol Direct 76 mg/dL
[2024-12-02 13:11] LABS: Add Urine Microscopic? NO; Appearance Urine Clear (Clear); Bilirubin Urine Negative (Negative); Blood Urine Negative (Negative); Color Urine Yellow (Yellow); Glucose Urine UA Negative (Negative); Ketones Urine Negative (Negative); Leukocyte Esterase Ur Negative LEU/UL (Negative); Nitrate Urine Negative (Negative); Protein Urine Negative (Negative); Specific Grav Ur 1.013 (1.001-1.035); Urobilinogen Urine 0.2 mg/dL (<2.0); pH Urine 6.5 (5.0-9.0)
== END 2024-12-02 11:18 | disposition home or self-care (01) ==
PROVIDERS: PCP Nurse Practitioner Family; Visit Provider Nurse Practitioner Family
DX: I10 Essential (primary) hypertension (principal); R73.09 Other abnormal glucose
CPT/HCPCS: 36415; 80053; 80061; 81003; 83036; 84443; 85025

== ENCOUNTER 2025-04-11 13:14 | Outpatient (CLI) | payer MEDICARE, SELFPAY ==
--- OUTSIDE RECORDS SUMMARY | 2025-04-11 13:16 | XMS_ITS | Clinical Summary ---
Author Organization [facility] Address [address] [place] [address] Care Team Providers Care Services Account Manager Name Role Phone Marvel Jeong MD Unavailable [phone] Marvel Jeong MD Primary Care Provider [phone] Allergies Active Allergy Reactions Criticality Noted Date [...] 7:00 AM CDT Height 175.3 cm (5' 9) 02/24/2023 7:00 AM CDT Body Mass Index 33.08 02/24/2023 7:00 AM CDT Plan of Treatment Health Maintenance Due Date Last Done Comments Colorectal Cancer Screening Colonoscopy (10 Years) 1955 Hepatitis C 10/13/1973 DTaP, Tdap and Td Vaccines ( 1 - Tdap) 10/13/1974 Pneumococcal Vaccine: 50+ Years (1 of 1 - PCV) 10/13/2005 Zoster Vaccines (1 of 2) 10/13/2005 COVID-19 Vaccine (4 - 2024-2 6 season) 2025 07/27/2021, 01/05/2021, 12/08/2020 RSV Immunization or 60+ [...] patient's age to complete this topic Insurance [facility] Care Teams Services Account Manager Relationship Specialty Start Date End Date aMrvel Jeong MD [address] [address] PCP - General CARDIOVASCULAR DISEASE 02/23/23 Marvel Jeong MD [address] [address] CARDIOVASCULAR DISEASE 02/21/23
--- OUTSIDE RECORDS SUMMARY | 2025-04-11 13:16 | XMS_ITS | Clinical Summary ---
Author Organization [facility] [address] Address [address] [place] [address] Care Team Providers Care Caster Helper Name Role Phone Nola Marvin NP Primary Care Provider [phone] Allergies Active Allergy Reactions Criticality Noted Date [...] (2,000 mcg total) by mouth daily Active linaclotide (LINZESS ORAL) Take by mouth Active finasteride (PROSCAR) 5 mg tablet Take 1 tablet (5 mg total) by mouth daily Active sotaloL (BETAPACE) 80 mg tabletIndication s:Typical atrial flutter (HCC),Atrial fibrillation, unspecified type (HCC) TAKE 1/2 TABLET(40 MG) BY MOUTH TWICE DAILY 90 tablet 1 01/13/2025 Active spironolactone (ALDACTONE) 25 mg tabletIndication s:Diastolic dysfunction without heart failure TAKE 1/2 TABLET(12.5 MG) BY MOUTH DAILY 45 tablet 3 02/10/2025 Active Active Problems Problem Noted Date Diagnosed Date A-fib 04/10/2023 Atrial flutter 12/06/2022 Atrial fibrillation 07/20/2022 Encounters Date Type Department Care Team Description 02/04/2025 9:45 AM CDT Office Visit [facility] Medical [facility] [address] [place] [address] Marvel Jeong MD Paroxysmal atrial fibrillation (HCC) (Primary Dx); Typical atrial flutter (HCC); Need for lipid screening 01/13/2025 Telephone [facility] [address] [place] [address] Marvel Jeong MD Med Refill from Last 3 Months Surgical History Surgery Date Site/Laterality Comments KIDNEY SURGERY 07/17/1975 - 07/16/1976 ABDOMINAL SURGERY kidney ureter obstruction Medical History Medical History Date Comments Atrial fibrillation (HCC) Nocturia Snoring Hypersomnia Hypertension marginal thru adulthoood Sleep apnea to be evaluated in future study Family History Medical History Relation Name Comments Alcohol abuse Father David stewart Atrial fibrillation Father David tamezbrenda constantino Dementia Father David tamezbrenda constantino Memory loss Father David stewart . Heart attack Maternal Grandfather Mr. Lara Stroke Maternal Grandmother dary lara Asthma Mother Rebeca Stewart COPD Mother Rebeca Stewart Heart disease Mother Rebeca Tamezracresencio Heart failure Mother Rebeca Stewart Hypertension Mother Rebeca Tamezracresencio Kidney disease Mother's Sister Radha [place] Cancer Paternal Grandmother jagjitmojgan garciaw Hypertension Son david Relation Name Status Comments Father David stewart jr. Maternal Grandfather Mr. 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 Gender Identity Not on file Sexual Orientation Not on file Obstetrics History Last Filed Vital Signs Vital Sign Reading Time Taken Comments Blood Pressure 124/78 02/04/2025 9:33 AM CDT Pulse 57 02/04/2025 9:33 AM CDT Temperature - - Respiratory Rate 16 03/28/2023 9:21 AM CDT Oxygen Saturation 96% 02/04/2025 9:33 AM CDT Inhaled Oxygen Concentration - - Weight 101.7 kg (224 lb 3.2 oz) 02/04/2025 9:33 AM CDT Height 175.3 cm (5' 9) 02/04/2025 9:33 AM CDT Body Mass Index 33.11 02/04/2025 9:33 AM CDT Plan of Treatment Health Maintenance [...] Well Visit 65+ 10/13/2020 Covid-19 Vaccine ( season) 2025 07/27/2021, 01/05/2021, 12/08/2020 Influenza Vaccine (#1) 2025 Procedures Procedure Name Priority Date/Time Associated Diagnosis Comments POCT LIPID PANEL Routine 02/04/2025 10:1 8 AM CDT Need for lipid screening from Last 3 Months Results * POCT lipid panel (02/04/2025 10:18 AM CDT) Cholesterol, POC 160 <200 MG/DL HDL, POC 44 >=40 mg/dL Triglycerides, POC 78 <=149 mg/dL LDL Cholesterol POC 101 <=129 mg/dL Chol/HDL Ratio, POC 2.3 NONE Non-HDL Cholesterol, POC 116 NONE mg/dL Cholesterol Total, POC 160 30 - 199 mg/dL Capillary blood 02/04/2025 1 0:18 AM CDT Marvel Jeong MD POINT OF CARE TEST ORDER IVONNE Final Result from Last 3 Months Insurance [employer] MEDICARE ADVANTAGE [employer] MEDICARE ADVANTAGE Care Teams Caster Helper Relationship Specialty Start Date End Date Nola Marvin NP [address] [facility] [address] [place] [address] PCP - General Family Medicine 02/04/25
[2025-04-11 13:46] LABS: Hematocrit 38.3 % (42.0-52.0); Hemoglobin 12.7 g/dL (14.0-18.0); Immature Granulocyte Percent A 0.3 % (0-0.5); Lymphocytes Absolute Auto 2.58 K/mm3 (0.9-3.2); Mean Corpuscular HGB Conc 33.2 g/dl (32-36); Mean Corpuscular Hemoglobin 32.4 pg (26-34); Mean Corpuscular Volume 97.7 fl (80-100); Nucleated Red Blood Cells Absolute Auto 0.000 K/mm3 (0.0-0.012); Nucleated Red Blood Cells Perc 0.0 % (0.0-0.2); Platelet Count Result 238 k/mm3 (150-375); Red Blood Count 3.92 M/mm3 (4.6-6.20); White Blood Count 6.8 K/mm3 (4.5-10.0)
[2025-04-11 14:07] LABS: Iron 68 ug/dL (49-181)
[2025-04-11 14:19] LABS: Percent Iron Saturation 23 % (20-50)
[2025-04-11 14:48] LABS: Ferritin 202.00 ng/mL (11.1-264)
== END 2025-04-11 13:15 | disposition home or self-care (01) ==
PROVIDERS: PCP Nurse Practitioner Family; Visit Provider Nurse Practitioner Family
DX: D64.9 Anemia, unspecified (principal)
CPT/HCPCS: 36415; 82728; 83540; 83550; 85025

== ENCOUNTER 2025-05-13 11:57 | Outpatient (CLI) | payer MEDICARE, SELFPAY ==
--- NOTE | ~2025-05-13 | NM_ITS ---
EXAMINATION: JESUSITA shea renal scan DATE: 05/13/2025 13:55 INDICATION: Left-sided hydronephrosis TECHNIQUE: 8.2 mCi Tc-99m MAG3 was administered IV. 40 mg furosemide was administered IV 10 minutes afterward. The patient was scanned in the supine position. A posterior abdominal radionuclide angiogram was obtained. A subsequent time course of static images of the kidneys, ureters, and bladder was obtained. COMPARISON: None FINDINGS: The posterior abdominal radionuclide angiogram and sequential static images show normal size, position, and morphology of the kidneys. Peak renal parenchymal uptake was 10 min in left kidney and 5 min in right kidney (normal peak 3-5 minutes). The relative early renal uptake was 53% on the left and 47% on the right (<40% is abnormal). No abnormalities of the ureters or bladder are seen. T1/2 for clearance of activity from the left kidney and proximal collecting system was 13 minutes. T1/2 for clearance of activity from the right kidney and proximal collecting system was 9 minutes. Notes on interpretation: T1/2 <10 minutes is normal, 10-15 minutes is low grade obstruction of questionable clinical significance, 15-20 minutes is partial obstruction that is likely clinically significant, >20 minutes is high grade obstruction. Note that false positives may be seen with supine positioning, dehydration, severely dilated nonobstructed kidney, atonic collecting system, poor renal function, and chronic furosemide use. IMPRESSION: 1. Symmetric kidney function. 2. Mildly delayed activity clearance from the left kidney consistent with low- grade obstruction of doubtful clinical significance. Reviewed, dictated and finalized at location A.
--- OUTSIDE RECORDS SUMMARY | 2025-05-13 13:58 | XMS_ITS | Clinical Summary ---
Author Organization [facility] [place] [facility] [address] Address [address] [place] [address] Care Team Providers Care Clinic Md Associate Name Role Phone Nola Marvin NP Primary Care Provider [phone] Allergies Active Allergy Reactions Criticality Noted Date [...] Name Comments Alcohol abuse Father David moyacresencio constantino Atrial fibrillation Father David chinbrenda constantino Dementia Father David chinbrenda constantino Memory loss Father David ja constantino Heart attack Maternal Grandfather Mr. Lara Stroke Maternal Grandmother dary lara Asthma Mother Rebeca Stewart COPD Mother Rebeca Stewart Heart disease Mother Rebeca Stewart Heart failure Mother Rebeca Stewart Hypertension Mother Rebeca Stewart Kidney disease Mother's Sister Radha [place] Cancer Paternal Grandmother jagjit madden Hypertension Son david Relation Name Status Comments Father David stewart jr. Maternal Grandfather Mr. 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
--- OUTSIDE RECORDS SUMMARY | 2025-05-13 13:58 | XMS_ITS | Clinical Summary ---
Author Organization [facility] Address [address] [place] [id number] Care Team Providers Care Can Technician Name Role Phone Marvel Jeong MD Unavailable [phone] Marvel Jeong MD Primary Care Provider [phone] Allergies Active Allergy Reactions Criticality Noted Date [...] 2024-2 6 season) 2025 07/27/2021, 01/05/2021, 12/08/2020 Influenza Adult (#1) 2025 RSV Immunization or 60+ Years (1 - 1-dose 75+ series) 10/13/2030 Hepatitis A Vaccines Aged Out No long er eligible based on patient's age to complete this topic Meningococcal B Vaccine Aged Out No l onger eligible based on patient's age to complete this topic Meningococcal Vaccine Aged Out No chelsea najma eligible based on patient's age to complete this topic RSV Immunizations Under 20 Months Aged Out No longer eligible b ased on patient's age to complete this topic Insurance [address] [place] [address] [facility] Care Teams Can Technician Relationship Specialty Start Date End Date Marvel Jeong MD [address] [id number] PCP - General CARDIOVASCULAR DISEASE 02/23/23 Marvel Jeong MD [address] [address] CARDIOVASCULAR DISEASE 02/21/23
== END 2025-05-13 11:58 | disposition home or self-care (01) ==
PROVIDERS: PCP Nurse Practitioner Family; Visit Provider Physician Assistant
DX: N13.30 Unspecified hydronephrosis (principal)
CPT/HCPCS: 78708; A9562